=== PATIENT | male | born 1970 | race Caucasian/White ===

== ENCOUNTER 2018-09-11 08:16 | Day surgery (SDC) | payer OTHER ==
[2018-09-09 11:51] VITALS: BMI 47.3
[~2018-09-11 08:16] MED LIST: LACTATED RINGERS 1,000 ML IV SCH; LIDOCAINE 1% 20 ML VIAL (10MG/ML) FOR IV START INTRADERMA PRN
[2018-09-11 08:38] VITALS: RESP 16; TEMP 97.5
[2018-09-11] MEDS ORDERED: PROPOFOL 10 MG/ML 20 ML VIAL IV ONE (09:12)
[2018-09-11] MEDS ORDERED: LIDOCAINE 1% INJ 10MG/ML (20 ML MDV) ONE (09:12)
--- NOTE | 2018-09-11 09:18 | P.GSHP ---
History of Present Illness H&P Date: 09/11/18 Chief Complaint: Colon cancer screening Patient here today for colonoscopy. Last colonoscopy 7 years ago. Patient had polyps at that time. No bowel related complaints. Past Medical History Past Medical History: Hyperlipidemia Additional Past Medical History / Comment(s): hx. kidney stones, hx. colon polyps History of Any Multi-Drug Resistant Organisms: None Reported Past Surgical History: Appendectomy, Tonsillectomy Additional Past Surgical History / Comment(s): colonoscopy Past Anesthesia/Blood Transfusion Reactions: No Reported Reaction Smoking Status: Never smoker - Past Family History Mother Family Medical History: No Reported History Medications and Allergies Home Medications Medication Instructions Recorded Confirmed Type Allopurinol [Zyloprim] 300 mg PO DAILY 09/09/18 09/09/18 History Atorvastatin [Lipitor] 10 mg PO HS 09/09/18 09/09/18 History Cyanocobalamin (Vitamin B-12) 1,000 mcg PO DAILY 09/09/18 09/09/18 History [Vitamin B-12] Escitalopram [Lexapro] 10 mg PO DAILY 09/09/18 09/09/18 History Hydrochlorothiazide [Hydrodiuril] 25 mg PO DAILY 09/09/18 09/09/18 History Multivitamin [Multivitamins Adult 1 each PO DAILY 09/09/18 09/09/18 History Gummies] Naproxen Sodium [Aleve] 220 mg PO BID 09/09/18 09/09/18 History Allergies Allergy/AdvReac Type Severity Reaction Status Date / Time No Known Allergies Allergy Verified 09/11/18 08:28 Surgical - Exam Vital Signs Temp Pulse Resp BP Pulse Ox 97.5 F L 99 16 144/74 95 09/11/18 08:32 09/11/18 08:32 09/11/18 08:32 09/11/18 08:32 09/11/18 08:32 Physical exam: General: Well-developed, well-nourished HEENT: Normocephalic, sclerae nonicteric Abdomen: Nontender, nondistended Extremities: No edema Neuro: Alert and oriented Assessment and Plan (1) Colon cancer screening Narrative/Plan: Will proceed with colonoscopy Current Visit: Yes Status: Acute Code(s): Z12.11 - ENCOUNTER FOR SCREENING FOR MALIGNANT NEOPLASM OF COLON SNOMED Code(s): 087058207
--- NOTE | 2018-09-11 09:38 | P.PCN ---
Date of Procedure: 09/11/18 Procedure(s) Performed: PREOPERATIVE DIAGNOSIS: Colon cancer screening, history of polyps POSTOPERATIVE DIAGNOSIS: Sigmoid colon polyp, diverticulosis PROCEDURE: Colonoscopy with snare polypectomy ANESTHESIA: MAC SURGEON: Rony Faye M.D. SPECIMENS: Sigmoid colon polyp ENDOSCOPIC PROCEDURE: The patient was placed on the endoscopy table in the left decubitus position. The Olympus colonoscope was inserted into the anus and passed under direct visualization to the base of the cecum. The appendiceal orifice was visualized. From that point the scope was slowly withdrawn inspecting all surfaces carefully. There were no neoplastic inflammatory or polypoid lesions throughout the cecum, ascending, transverse, and descending colon. Sigmoid colon a small polyp was identified and removed using the snare with cautery technique. The remainder of the sigmoid and rectum appeared normal. There was mild left-sided diverticulosis noted. Digital rectal examination was normal. The patient was taken to the recovery room in stable condition per anesthesia guidelines. RECOMMENDATIONS: Increase fiber. Anticipate follow-up colonoscopy 5 years.
[2018-09-11 10:03] VITALS: BP 99/62; PULSE 83
== END 2018-09-11 10:14 | disposition home or self-care (01) ==
LOC: ORWHC2ENDO 08:16
PROVIDERS: ATTEND Surgery
DX: Z12.11 Encounter for screening for malignant neoplasm of colon (principal); K63.5 Polyp of colon; K63.3 Ulcer of intestine; K57.30 Diverticulosis of large intestine without perforation or abscess without bleeding; E78.5 Hyperlipidemia, unspecified; I10 Essential (primary) hypertension; E66.9 Obesity, unspecified; Z68.42 Body mass index [BMI] 45.0-49.9, adult; Z86.010 Personal history of colon polyps; Z87.442 Personal history of urinary calculi; Z79.899 Other long term (current) drug therapy; Z79.1 Long term (current) use of non-steroidal anti-inflammatories (NSAID)
CPT/HCPCS: 88305; 45385; J2001; J2704

== ENCOUNTER 2022-04-14 12:42 | Inpatient (IN) | payer OTHER ==
[2022-04-14 15:06] LABS: Basophils # (A) 0.1 k/uL (0-0.2); Basophils % (A) 1 %; Eosinophils # (A) 0.1 k/uL (0-0.7); Eosinophils % (A) 1 %; HCT 40.1 % (39.0-53.0); HGB 12.7 gm/dL (13.0-17.5); Hypochromasia Slight; Lymphocytes # (A) 2.9 k/uL (1.0-4.8); Lymphocytes % (A) 15 %; MCH 24.8 pg (25.0-35.0); MCHC 31.6 g/dL (31.0-37.0); MCV 78.5 fL (80.0-100.0); Monocytes # (A) 1.2 k/uL (0-1.0); Monocytes % (A) 6 %; Neutrophils # (A) 14.1 k/uL (1.3-7.7); Neutrophils % (A) 76 %; Platelet Count 479 k/uL (150-450); RBC 5.11 m/uL (4.30-5.90); RDW 14.3 % (11.5-15.5); WBC 18.7 k/uL (3.8-10.6)
[2022-04-14 15:14] LABS: ALT 12 U/L (4-49); AST 17 U/L (17-59); African American GFR (CKD) >90 (>60 ml/min/1.73 sqM); Albumin 3.3 g/dL (3.5-5.0); Alkaline Phosphatase 125 U/L (38-126); Anion Gap 14 mmol/L; Blood Urea Nitrogen 13 mg/dL (9-20); Calcium 8.8 mg/dL (8.4-10.2); Carbon Dioxide 27 mmol/L (22-30); Chloride 94 mmol/L (98-107); Glucose 123 mg/dL (74-99); Non-African American GFR(CKD) >90 (>60 ml/min/1.73 sqM); Potassium 3.9 mmol/L (3.5-5.1); Sodium 135 mmol/L (137-145); Total Bilirubin 0.4 mg/dL (0.2-1.3); Total Protein 6.8 g/dL (6.3-8.2)
--- NOTE | 2022-04-14 15:37 | XR ---
EXAMINATION TYPE: XR chest 2V DATE OF EXAM: 04/14/2022 COMPARISON: NONE HISTORY: Rib pain TECHNIQUE: 2 views FINDINGS: There is some mild atelectasis right lung base. There is elevated right diaphragm. Heart si ze is normal. Bony thorax is intact. IMPRESSION: There is some mild right basilar atelectasis. Normal heart.
[2022-04-14] MEDS ORDERED: SODIUM CHLORIDE 0.9% 2,000 ML IV ONE (17:39)
--- NOTE | 2022-04-14 17:54 | ED ---
General Adult HPI - General Chief complaint: Recheck/Abnormal Lab/Rx Stated complaint: abn labs, rt sided pain Time Seen by Provider: 04/14/22 17:25 Source: patient Mode of arrival: wheelchair Limitations: no limitations - History of Present Illness Initial comments: 52-year-old male with past nuchal history of hyperlipidemia, prediabetic on metformin who presents to the emergency department for abnormal labs. States that he has been treated for pneumonia since January of this year. He developed a cough, shortness of breath. Laboratory studies were obtained by his primary care and was found that he had an elevated white blood cell count in the 14. He also had a low hemoglobin of 11 which was a fall from his baseline per his PCP. He was placed on an antibiotic by the mid-level provider. This was switched by the physician. He was on azithromycin and Augmentin. States that 4 days into the duration of his treatment he felt much improved. He followed back up with his doctor for repeat x-ray which demonstrated improvement in his pneumonia. He continued to have some shortness of breath especially with exertion. Denies chest pain. No previous cardiac history. Denies calf pain or swelling. No history of DVT or PE. For the past week the patient had recurrent symptoms. He called his physician who wanted to do a CT of his chest. States that he has a prescription for this however has not yet had it completed. Reports that he feels more short of breath with chest congestion and therefore came up to the hospital for evaluation. He denies productive cough or hemoptysis. No abdominal pain. No changes in his bowel or bladder habits. Does admit to poor appetite and 50 pound weight loss since the end of January. Patient is a non smoker. No other alleviating, precipitating or modifying factors After speaking with the patient further after his diagnosis he does admit that just previous to becoming ill that he was getting significant dental work performed. States that they were removing all of his old fillings and replacing them with new ones. He then got ill and was unable to continue with his dental work. He denies drug use - Related Data Home Medications Medication Instructions Recorded Confirmed Atorvastatin [Lipitor] 10 mg PO DAILY 09/09/18 04/14/22 Escitalopram [Lexapro] 10 mg PO DAILY 09/09/18 04/14/22 hydroCHLOROthiazide [Hydrodiuril] 25 mg PO DAILY 09/09/18 04/14/22 Multivit-Min/Folic/Vit K/Lycop 1 tab PO DAILY 04/14/22 04/14/22 [Men's Multivitamin Tablet] metFORMIN HCL [Glucophage] 500 mg PO BID-W/MEALS 04/14/22 04/14/22 Allergies Allergy/AdvReac Type Severity Reaction Status Date / Time No Known Allergies Allergy Verified 04/14/22 19:09 Review of Systems ROS Statement: Those systems with pertinent positive or pertinent negative responses have been documented in the HPI. ROS Other: All systems not noted in ROS Statement are negative. Past Medical History Past Medical History: Hyperlipidemia, Pneumonia Additional Past Medical History / Comment(s): hx. kidney stones, hx. colon polyps History of Any Multi-Drug Resistant Organisms: None Reported Past Surgical History: Appendectomy, Tonsillectomy Additional Past Surgical History / Comment(s): colonoscopy Past Anesthesia/Blood Transfusion Reactions: No Reported Reaction Past Psychological History: No Psychological Hx Reported Smoking Status: Never smoker Past Alcohol Use History: None Reported Past Drug Use History: None Reported - Past Family History Mother Family Medical History: No Reported History General Exam Limitations: no limitations General appearance: alert, in no apparent distress, obese Head exam: Present: atraumatic, normocephalic, normal inspection Eye exam: Present: normal appearance, PERRL, EOMI. Absent: scleral icterus, conjunctival injection, periorbital swelling ENT exam: Present: normal exam, mucous membranes moist Neck exam: Present: normal inspection. Absent: tenderness, meningismus, lymphadenopathy Respiratory exam: Present: normal lung sounds bilaterally. Absent: respiratory distress, wheezes, rales, rhonchi, stridor Cardiovascular Exam: Present: normal rhythm, tachycardia, normal heart sounds. Absent: systolic murmur, diastolic murmur, rubs, gallop, clicks GI/Abdominal exam: Present: soft, normal bowel sounds. Absent: distended, tenderness, guarding, rebound, rigid Extremities exam: Present: normal inspection, full ROM, normal capillary refill. Absent: tenderness, pedal edema, joint swelling, calf tenderness Back exam: Present: normal inspection Neurological exam: Present: alert, oriented X3, CN II-XII intact Psychiatric exam: Present: normal affect, normal mood Skin exam: Present: warm, dry, intact, normal color. Absent: rash Course Vital Signs 0904/14/22 04/14/22 13:02 19:30 21:24 Temperature 98.5 F 99.0 F Pulse Rate 116 H 103 H 99 Respiratory 20 20 15 Rate Blood Pressure 128/62 128/77 117/75 O2 Sat by Pulse 95 96 96 Oximetry EKG Findings - EKG Comments: EKG Findings:: EKG demonstrates a sinus tachycardia with a rate of 100. TN interval 152. QRS 92. QTC of 388. No acute ST segment elevation. There is a T-wave inversion in lead 3 Medical Decision Making - Medical Decision Making Upon arrival patient is placed into room 10. A thorough history and physical exam was performed. Labs were completed in the waiting room as the patient was here for a significant period of time before being placed in a room. Laboratory studies are reviewed and do demonstrate a white count of 18.7. IV is established the patient is given a 2 L bolus and started on 130 mL/h. Blood cultures obtained. Patient does have a chest x-ray performed which demonstrates right basilar atelectasis. I do perform a CT of the chest as the patient reports to exertional dyspnea which is pretty profound. CT is negative for PE however it does sisal picker a liver abscess. As this is identified on the CT of the chest the imaging is continued into the abdomen. Patient is initiated on Zosyn. Recommended admission for which the patient was agreeable to. Spoke with Dr. Cedeño who agreed to the admission. - Lab Data Result diagrams: 04/17/22 07:04 04/17/22 07:04 Lab Results 04/14/22 04/14/22 04/14/22 Range/Units 14:58 14:58 14:58 WBC 18.7 H (3.8-10.6) k/uL RBC 5.11 (4.30-5.90) m/uL Hgb 12.7 L (13.0-17.5) gm/dL Hct 40.1 (39.0-53.0) % MCV 78.5 L (80.0-100.0) fL MCH 24.8 L (25.0-35.0) pg MCHC 31.6 (31.0-37.0) g/dL RDW 14.3 (11.5-15.5) % Plt Count 479 H (150-450) k/uL MPV 7.0 Neutrophils % 76 % Lymphocytes % 15 % Monocytes % 6 % Eosinophils % 1 % Basophils % 1 % Neutrophils # 14.1 H (1.3-7.7) k/uL Lymphocytes # 2.9 (1.0-4.8) k/uL Monocytes # 1.2 H (0-1.0) k/uL Eosinophils # 0.1 (0-0.7) k/uL Basophils # 0.1 (0-0.2) k/uL Hypochromasia Slight Sodium 135 L (137-145) mmol/L Potassium 3.9 (3.5-5.1) mmol/L Chloride 94 L (98-107) mmol/L Carbon Dioxide 27 (22-30) mmol/L Anion Gap 14 mmol/L BUN 13 (9-20) mg/dL Creatinine 0.43 L (0.66-1.25) mg/dL Est GFR (CKD-EPI)AfAm >90 (>60 ml/min/1.73 sqM) Est GFR (CKD-EPI)NonAf >90 (>60 ml/min/1.73 sqM) Glucose 123 H (74-99) mg/dL Calcium 8.8 (8.4-10.2) mg/dL Total Bilirubin 0.4 (0.2-1.3) mg/dL AST 17 (17-59) U/L ALT 12 (4-49) U/L Alkaline Phosphatase 125 (38-126) U/L Troponin I <0.012 (0.000-0.034) ng/mL Total Protein 6.8 (6.3-8.2) g/dL Albumin 3.3 L (3.5-5.0) g/dL Urine Color Urine Appearance (Clear) Urine pH (5.0-8.0) Ur Specific [place] (1.001-1.035) Urine Protein (Negative) Urine Glucose (UA) (Negative) Urine Ketones (Negative) Urine Blood (Negative) Urine Nitrite (Negative) Urine Bilirubin (Negative) Urine Urobilinogen (<2.0) mg/dL Ur Leukocyte Esterase (Negative) Urine RBC (0-5) /hpf Urine WBC (0-5) /hpf Hyaline Casts (0-2) /lpf Urine Mucus (None) /hpf 04/14/22 Range/Units 18:00 WBC (3.8-10.6) k/uL RBC (4.30-5.90) m/uL Hgb (13.0-17.5) gm/dL Hct (39.0-53.0) % MCV (80.0-100.0) fL MCH (25.0-35.0) pg MCHC (31.0-37.0) g/dL RDW (11.5-15.5) % Plt Count (150-450) k/uL MPV Neutrophils % % Lymphocytes % % Monocytes % % Eosinophils % % Basophils % % Neutrophils # (1.3-7.7) k/uL Lymphocytes # (1.0-4.8) k/uL Monocytes # (0-1.0) k/uL Eosinophils # (0-0.7) k/uL Basophils # (0-0.2) k/uL Hypochromasia Sodium (137-145) mmol/L Potassium (3.5-5.1) mmol/L Chloride (98-107) mmol/L Carbon Dioxide (22-30) mmol/L Anion Gap mmol/L BUN (9-20) mg/dL Creatinine (0.66-1.25) mg/dL Est GFR (CKD-EPI)AfAm (>60 ml/min/1.73 sqM) Est GFR (CKD-EPI)NonAf (>60 ml/min/1.73 sqM) Glucose (74-99) mg/dL Calcium (8.4-10.2) mg/dL Total Bilirubin (0.2-1.3) mg/dL AST (17-59) U/L ALT (4-49) U/L Alkaline Phosphatase (38-126) U/L Troponin I (0.000-0.034) ng/mL Total Protein (6.3-8.2) g/dL Albumin (3.5-5.0) g/dL Urine Color Yellow Urine Appearance Clear (Clear) Urine pH 6.5 (5.0-8.0) Ur Specific [place] 1.025 (1.001-1.035) Urine Protein 1+ H (Negative) Urine Glucose (UA) Negative (Negative) Urine Ketones Negative (Negative) Urine Blood Negative (Negative) Urine Nitrite Negative (Negative) Urine Bilirubin Negative (Negative) Urine Urobilinogen 4.0 (<2.0) mg/dL Ur Leukocyte Esterase Negative (Negative) Urine RBC <1 (0-5) /hpf Urine WBC 1 (0-5) /hpf Hyaline Casts 8 H (0-2) /lpf Urine Mucus Many H (None) /hpf Disposition Clinical Impression: Leukocytosis, Tachycardia, Sepsis, Liver abscess Disposition: ADMITTED IP TO THIS HOSP Condition: Stable Is patient prescribed a controlled substance at d/c from ED?: No Time of Disposition: 18:38 Decision to Admit Reason: Admit from EC Decision Date: 04/14/22 Decision Time: 18:38
[2022-04-14 18:28] LABS: Appearance,Urine Clear (Clear); Bilirubin,Urine Negative (Negative); Blood,Urine Negative (Negative); Color,Urine Yellow; Glucose,Urine (UA) Negative (Negative); Hyaline Casts,Urine 8 /lpf (0-2); Ketones,Urine Negative (Negative); Leukocyte Esterase,Urine Negative (Negative); Mucus,Urine Many /hpf; Nitrite,Urine Negative (Negative); PH, Urine 6.5 (5.0-8.0); Protein,Urine 1+ (Negative); RBC,Urine <1 /hpf (0-5); Specific Gravity,Urine 1.025 (1.001-1.035); WBC,Urine 1 /hpf (0-5)
--- NOTE | 2022-04-14 19:12 | CT ---
EXAMINATION TYPE: CT chest angio for PE DATE OF EXAM: 04/14/2022 COMPARISON: None HISTORY: sob, tachycardia, elevated wbc CT DLP: 3960.1 mGycm Automated exposure control for dose reduction was used. CONTRAST: Performed with IV Contrast, patient injected with 200cc mL of Isovue 370. Images obtained from the thoracic inlet to the diaphragm with the IV contrast. There are Three-D post processed images. There is some bullous pulmonary emphysema. There is a single large bulla in the sup erior segment right lower lobe. This measures 7 cm. There is some nodular density within the bulla in the right paraspinal region. There is some mild infiltrate and atelectasis right lung base. There is elevated right diaphragm. The heart size is normal. No pericardial effusion. There is no mediastinal adenopathy. Thoracic aorta is intact. There is no evidence of filling defect in the pulmonary arteries. IMPRESSION: There is infiltrate and atelectasis right lower lobe. There is some mild pleural thickening and nodul ar 2 cm density within the large bulla in the region of superior segment right lower lobe. Normal heart. No evidence of pulmonary embolism. Pulmonary emphysema.
--- NOTE | 2022-04-14 19:21 | CT ---
EXAMINATION TYPE: CT abdomen pelvis w con DATE OF EXAM: 04/14/2022 COMPARISON: None HISTORY: sob, tachycardia, elevated wbc CT DLP: 3960.1 mGycm Automated exposure control for dose reduction was used. CONTRAST: Performed with IV Contrast, patient injected with 200cc mL of Isovue 370. Images obtained from the diaphragm to the floor the pelvis with IV contrast. FINDINGS: There is some mild atelectasis at the right lung base. There is infiltrate and pleural thickening in emphysematous change in the superior segment right lower lobe. Heart size is normal. There is multiseptated cystic appearing mass in the posterior right lobe of the liver. There is no en hancement. The lesion overall measures 9 cm. There is posterior extension of the mass into the right perirenal space. The spleen is intact. No pancreatic mass. The stomach is intact. Gallbladder appears normal. There is no adrenal mass. Kidneys show satisfactory contrast opacification. There is no hydronephrosi s. Ureters are not dilated. No retroperitoneal adenopathy. Bladder distends smoothly. There is fat-co ntaining bilateral inguinal hernias. No free fluid in the pelvis. No pelvic mass. There are sigmoid d iverticula without diverticulitis. There are surgical clips from appendectomy. No mesenteric edema. No ascites or free air. No sign of a bowel obstruction. The lumbar vertebrae have normal alignment. No compression fracture. Posterior elements are intact. B natan pelvis is intact. The hip joints are intact. IMPRESSION: Multiseptated cystic low density mass in the right lobe of the liver with extension into the perirena l space. There is pleural reaction and infiltrate right lung base. This could relate to liver abscess . Liver tumor not excluded. Follow-up is recommended.
[2022-04-14] MEDS ORDERED: NALOXONE 0.4 MG/ML 1 ML VIAL IV PRN (19:24)
[2022-04-14] MEDS: PIPERACILLIN-TAZOBACTAM 3.375 GM in SODIUM CHLORIDE 0.9% 100 ML IVPB SCH (19:45)
[2022-04-14] MEDS: SODIUM CHLORIDE 0.9% 1,000 ML IV SCH (19:45)
[2022-04-14] MEDS: IBUPROFEN 400 MG TAB PO PRN (22:31)
[2022-04-15] MEDS: PIPERACILLIN-TAZOBACTAM 3.375 GM in SODIUM CHLORIDE 0.9% 100 ML IVPB SCH ×4 (00:18→23:41)
[2022-04-15] MEDS: ATORVASTATIN 10 MG TAB PO SCH (07:38)
[2022-04-15] MEDS: MULTIVITAMINS, THERA 1 EACH TAB PO SCH (07:39)
[2022-04-15] MEDS ORDERED: hydroCHLOROthiazide 25 MG TAB PO SCH (09:00)
[2022-04-15 09:16] LABS: Basophils # (A) 0.05 X 10*3/uL (0.00-0.10); Basophils % (A) 0.4 %; Eosinophils # (A) 0.18 X 10*3/uL (0.04-0.35); Eosinophils % (A) 1.4 %; HCT 34.4 % (39.6-50.0); HGB 10.6 g/dL (13.0-17.0); Immature Grans, Automated 0.9 %; Lymphocytes # (A) 2.04 X 10*3/uL (0.90-5.00); Lymphocytes % (A) 15.5 %; MCH 24.6 pg (27.0-32.0); MCHC 30.8 g/dL (32.0-37.0); MCV 79.8 fL (80.0-97.0); Mean Platelet Volume 9.2 fL (9.5-12.2); Monocytes # (A) 1.26 X 10*3/uL (0.20-1.00); Monocytes % (A) 9.6 %; NRBC Per 100 WBC 0 /100 WBCS (0.0-0.0); Neutrophils # (A) 9.48 X 10*3/uL (1.80-7.70); Neutrophils % (A) 72.2 %; Platelet Count 342 X 10*3/uL (140-440); RBC 4.31 X 10*6/uL (4.40-5.60); RDW 14.7 % (11.5-14.5); WBC 13.13 X 10*3/uL (4.50-10.00)
[2022-04-15 09:58] LABS: African American GFR (CKD) 145.4 (60.0-200.0); BUN/Creat Ratio 24.4 Ratio (12.00-20.00); Blood Urea Nitrogen 12.2 mg/dL (9.0-27.0); Calcium 8.4 mg/dL (8.7-10.3); Non-African American GFR(CKD) 125.5 (60.0-200.0); Potassium 3.9 mmol/L (3.5-5.5)
[2022-04-15] MEDS: ESCITALOPRAM 10 MG TAB PO SCH (10:37)
[2022-04-15] MEDS: IBUPROFEN 400 MG TAB PO PRN ×2 (13:03→21:12)
[2022-04-15] MEDS: SODIUM CHLORIDE 0.9% 1,000 ML IV SCH ×3 (13:04→23:40)
--- NOTE | 2022-04-15 14:06 | P.HPIM ---
History of Present Illness 52-year-old pleasant male came in with complaints of a right-sided chest pain. Patient has severe pleuritic pain in the lower rib cage area on the right side. Patient had similar symptoms for last few days she couple weeks and the patient was believed to have pneumonia and was a treated with azithromycin and Augmentin. After transient improvement patient's symptoms came back and his white blood cell count continued to get worse after initial improvement because of which patient came to ER had a CT of the chest which showed some pleural reaction no significant pneumonia CT of the abdomen was done which showed hepatic abscess about 9 cm. Interventional radiology was consulted patient was started on Zosyn IV fluids. Patient had a dental work that was performed recently, which is a removing all his old fillings and replacing them with ones. Patient does have leukocytosis without any fever REVIEW OF SYSTEMS: CONSTITUTIONAL: No fever, no malaise, no fatigue. HEENT: No recent visual problems or hearing problems. Denied any sore throat. CARDIOVASCULAR: No orthopnea, PND, no palpitations, no syncope. PULMONARY: No shortness of breath, no cough, no hemoptysis. GASTROINTESTINAL: No diarrhea, no nausea, no vomiting, no abdominal pain. NEUROLOGICAL: No headaches, no weakness, no numbness. HEMATOLOGICAL: Denies any bleeding or petechiae. GENITOURINARY: Denies any burning micturition, frequency, or urgency. MUSCULOSKELETAL/RHEUMATOLOGICAL: Denies any joint pain, swelling, or any muscle pain. ENDOCRINE: Denies any polyuria or polydipsia. The rest of the 14-point review of systems is negative. PHYSICAL EXAMINATION: GENERAL: The patient is alert and oriented x3, not in any acute distress. Well d eveloped, well nourished. HEENT: Pupils are round and equally reacting to light. EOMI. No scleral icterus. No conjunctival pallor. Normocephalic, atraumatic. No pharyngeal erythema. No thyromegaly. CARDIOVASCULAR: S1 and S2 present. No murmurs, rubs, or gallops. PULMONARY: Chest is clear to auscultation, no wheezing or crackles. ABDOMEN: Soft, nontender, nondistended, normoactive bowel sounds. No palpable organomegaly. MUSCULOSKELETAL: No joint swelling or deformity. EXTREMITIES: No cyanosis, clubbing, or pedal edema. NEUROLOGICAL: Gross neurological examination did not reveal any focal deficits. SKIN: No rashes. Assessment and plan -Hepatic abscess: Induration radiology was consulted for image guided draining, patient will continued on Zosyn, infectious disease was consulted -Hypertension patient blood pressure is low normal hold off on hydrocodone thiazide -Hyperlipidemia -3 diabetes mellitus for which patient on metformin DVT prophylaxis: Lovenox Past Medical History Past Medical History: Hyperlipidemia, Pneumonia Additional Past Medical History / Comment(s): hx. kidney stones, hx. colon polyps History of Any Multi-Drug Resistant Organisms: None Reported Past Surgical History: Appendectomy, Tonsillectomy Additional Past Surgical History / Comment(s): colonoscopy Past Anesthesia/Blood Transfusion Reactions: No Reported Reaction Past Psychological History: No Psychological Hx Reported Smoking Status: Never smoker Past Alcohol Use History: None Reported Past Drug Use History: None Reported - Past Family History Mother Family Medical History: No Reported History Medications and Allergies Home Medications Medication Instructions Recorded Confirmed Type Atorvastatin [Lipitor] 10 mg PO DAILY 09/09/18 04/14/22 History Escitalopram [Lexapro] 10 mg PO DAILY 09/09/18 04/14/22 History hydroCHLOROthiazide [Hydrodiuril] 25 mg PO DAILY 09/09/18 04/14/22 History Multivit-Min/Folic/Vit K/Lycop 1 tab PO DAILY 04/14/22 04/14/22 History [Men's Multivitamin Tablet] metFORMIN HCL [Glucophage] 500 mg PO BID-W/MEALS 04/14/22 04/14/22 History Allergies Allergy/AdvReac Type Severity Reaction Status Date / Time No Known Allergies Allergy Verified 04/14/22 19:09 Physical Exam Vitals: Vital Signs Temp Pulse Pulse Resp BP BP Pulse Ox 04/15/22 08:00 99.1 F 103 H 18 112/54 94 L 04/15/22 01:50 98.5 F 86 15 132/78 94 L 04/14/22 21:24 99 15 117/75 96 04/14/22 19:30 99.0 F 103 H 20 128/77 96 Intake and Output 04/14/22 04/15/22 04/15/22 22:59 06:59 14:59 Intake Total 1010 Balance 1010 Intake: Intake, IV Titration 1010 Amount Piperacillin-Tazobactam 3 100 .375 gm In Sodium Chloride 0.9% 100 ml @ 25 mls/hr IVPB Q8HR [facility] Rx# :[id number] Sodium Chloride 0.9% 1, 910 000 ml @ 130 mls/hr IV . Q7H42M [facility] Rx#:[id number] Other: # Voids 2 Weight 122.47 kg Results CBC & Chem 7: 04/15/22 04:07 04/15/22 04:07 Labs: Abnormal Lab Results - Last 24 Hours (Table) 04/14/22 04/14/22 04/14/22 Range/Units 14:58 14:58 18:00 WBC 18.7 H (3.8-10.6) k/uL RBC (4.40-5.60) X 10*6/uL Hgb 12.7 L (13.0-17.5) gm/dL Hct (39.6-50.0) % MCV 78.5 L (80.0-100.0) fL MCH 24.8 L (25.0-35.0) pg MCHC (32.0-37.0) g/dL RDW (11.5-14.5) % Plt Count 479 H (150-450) k/uL MPV (9.5-12.2) fL Immature Gran # (0.00-0.04) X 10*3/uL Neutrophils # 14.1 H (1.3-7.7) k/uL Monocytes # 1.2 H (0-1.0) k/uL Sodium 135 L (137-145) mmol/L Chloride 94 L (98-107) mmol/L Carbon Dioxide (20.0-27.5) mmol/L Anion Gap (10.00-18.00) mmol/L Creatinine 0.43 L (0.66-1.25) mg/dL BUN/Creatinine Ratio (12.00-20.00) Ratio Glucose 123 H (74-99) mg/dL Calcium (8.7-10.3) mg/dL Albumin 3.3 L (3.5-5.0) g/dL Urine Protein 1+ H (Negative) Hyaline Casts 8 H (0-2) /lpf Urine Mucus Many H (None) /hpf 04/15/22 04/15/22 Range/Units 04:07 04:07 WBC 13.13 H (3.8-10.6) k/uL RBC 4.31 L (4.40-5.60) X 10*6/uL Hgb 10.6 L (13.0-17.5) gm/dL Hct 34.4 L (39.6-50.0) % MCV 79.8 L (80.0-100.0) fL MCH 24.6 L (25.0-35.0) pg MCHC 30.8 L (32.0-37.0) g/dL RDW 14.7 H (11.5-14.5) % Plt Count (150-450) k/uL MPV 9.2 L (9.5-12.2) fL Immature Gran # 0.12 H (0.00-0.04) X 10*3/uL Neutrophils # 9.48 H (1.3-7.7) k/uL Monocytes # 1.26 H (0-1.0) k/uL Sodium (137-145) mmol/L Chloride (98-107) mmol/L Carbon Dioxide 31.0 H (20.0-27.5) mmol/L Anion Gap 6.00 L (10.00-18.00) mmol/L Creatinine 0.5 L (0.66-1.25) mg/dL BUN/Creatinine Ratio 24.40 H (12.00-20.00) Ratio Glucose 128 H (74-99) mg/dL Calcium 8.4 L (8.7-10.3) mg/dL Albumin (3.5-5.0) g/dL Urine Protein (Negative) Hyaline Casts (0-2) /lpf Urine Mucus (None) /hpf Thrombosis Risk Factor Assmnt - Choose All That Apply Each Factor Represents 1 point: Obesity (BMI >25) Thrombosis Risk Factor Assessment Total Risk Factor Score: 1 Thrombosis Risk Factor Assessment Level: Low Risk
[2022-04-15] MEDS ORDERED: HYDROcodone/APAP 5-325MG 1 EACH TAB PO PRN (16:28)
[2022-04-15] MEDS: FAMOTIDINE 20 MG TAB PO SCH (21:10)
[2022-04-16] MEDS: ATORVASTATIN 10 MG TAB PO SCH (08:06)
[2022-04-16] MEDS: FAMOTIDINE 20 MG TAB PO SCH ×2 (08:06→21:28)
[2022-04-16] MEDS: MULTIVITAMINS, THERA 1 EACH TAB PO SCH (08:06)
[2022-04-16] MEDS: PIPERACILLIN-TAZOBACTAM 3.375 GM in SODIUM CHLORIDE 0.9% 100 ML IVPB SCH (08:06)
[2022-04-16] MEDS: ESCITALOPRAM 10 MG TAB PO SCH (08:07)
[2022-04-16 10:50] LABS: HCT 36.6 % (39.6-50.0); HGB 11.1 g/dL (13.0-17.0); MCH 23.9 pg (27.0-32.0); MCHC 30.3 g/dL (32.0-37.0); MCV 78.7 fL (80.0-97.0); Mean Platelet Volume 9.2 fL (9.5-12.2); NRBC Per 100 WBC 0 /100 WBCS (0.0-0.0); Platelet Count 359 X 10*3/uL (140-440); RBC 4.65 X 10*6/uL (4.40-5.60); RDW 14.6 % (11.5-14.5); WBC 13.66 X 10*3/uL (4.50-10.00)
[2022-04-16 11:17] LABS: African American GFR (CKD) 145.4 (60.0-200.0); Anion Gap 12.8 mmol/L (10.00-18.00); BUN/Creat Ratio 19.8 Ratio (12.00-20.00); Blood Urea Nitrogen 9.9 mg/dL (9.0-27.0); Calcium 8.4 mg/dL (8.7-10.3); Carbon Dioxide 24.2 mmol/L (20.0-27.5); Non-African American GFR(CKD) 125.5 (60.0-200.0)
[2022-04-16] MEDS: ENOXAPARIN 40 MG/0.4 ML SYRINGE SQ SCH (11:45)
[2022-04-16] MEDS: SODIUM CHLORIDE 0.9% 1,000 ML IV SCH (11:48)
[2022-04-16] MEDS ORDERED: HYDROmorphone 1 MG/ML 1 ML SYRINGE IVP STA (11:57)
[2022-04-16 19:42] LABS: INR 1.1 (<1.2); Prothrombin Time 11.9 sec (9.0-12.0)
[2022-04-17] MEDS: PIPERACILLIN-TAZOBACTAM 3.375 GM in SODIUM CHLORIDE 0.9% 100 ML IVPB SCH ×4 (00:03→16:35)
[2022-04-17] MEDS: IBUPROFEN 400 MG TAB PO PRN ×2 (02:52→21:30)
[2022-04-17] MEDS: SODIUM CHLORIDE 0.9% 1,000 ML IV SCH ×2 (04:20→14:45)
[2022-04-17] MEDS: ATORVASTATIN 10 MG TAB PO SCH (09:42)
[2022-04-17] MEDS: MULTIVITAMINS, THERA 1 EACH TAB PO SCH (09:42)
[2022-04-17] MEDS: ENOXAPARIN 40 MG/0.4 ML SYRINGE SQ SCH (09:42)
[2022-04-17] MEDS: FAMOTIDINE 20 MG TAB PO SCH ×2 (09:42→21:26)
[2022-04-17] MEDS: ESCITALOPRAM 10 MG TAB PO SCH (09:42)
[2022-04-17 10:31] LABS: HCT 38.1 % (39.6-50.0); HGB 11.9 g/dL (13.0-17.0); MCH 24.6 pg (27.0-32.0); MCHC 31.2 g/dL (32.0-37.0); MCV 78.7 fL (80.0-97.0); Mean Platelet Volume 9.1 fL (9.5-12.2); NRBC Per 100 WBC 0 /100 WBCS (0.0-0.0); Platelet Count 436 X 10*3/uL (140-440); RBC 4.84 X 10*6/uL (4.40-5.60); RDW 14.9 % (11.5-14.5); WBC 34.12 X 10*3/uL (4.50-10.00)
[2022-04-17 10:52] LABS: African American GFR (CKD) 145.4 (60.0-200.0); Anion Gap 13.4 mmol/L (10.00-18.00); Calcium 8.5 mg/dL (8.7-10.3); Carbon Dioxide 22.6 mmol/L (20.0-27.5); Non-African American GFR(CKD) 125.5 (60.0-200.0); Potassium 4.1 mmol/L (3.5-5.5)
[2022-04-17 11:47] LABS: Basophils # (A) 0.08 X 10*3/uL (0.00-0.10); Basophils % (A) 0.2 %; Eosinophils # (A) 0.03 X 10*3/uL (0.04-0.35); Eosinophils % (A) 0.1 %; Immature Grans, Automated 1.2 %; Lymphocytes # (A) 2.31 X 10*3/uL (0.90-5.00); Lymphocytes % (A) 6.8 %; Monocytes # (A) 2.35 X 10*3/uL (0.20-1.00); Monocytes % (A) 6.9 %; Neutrophils # (A) 28.94 X 10*3/uL (1.80-7.70); Neutrophils % (A) 84.8 %
--- NOTE | 2022-04-17 15:26 | P.CONS ---
History of Present Illness - Reason for Consult Consult date: 04/16/22 - History of Present Illness Patient is a 52-year male with a past medical history of liver hyperlipidemia diabetes mellitus and has been recently treated for pneumonia in the outpatient setting, presenting to the hospital 2 days ago for evaluation of abnormal labs, the patient was noticed to have elevated white count of 14,000 hemoglobin of 11, patient has been complaining mostly of feeling weak tired no energy is also complaining of shortness of breath on minimal exertion denies any chest pain the patient cough seem to have improved and not bring up any sputum patient denies any abdominal pain no nausea vomiting no diarrhea, patient on presentation to the hospital was afebrile and no fever have been recorded subsequently patient did have white count of 13,000 with a left shift kidney function has been normal urine has been negative patient did have a chest x-ray mild right basilar atelectasis he did have a CT angiogram of the chest that was negative for PE tissues infiltrate atelectasis right lower lobe mild pleural thickening also have a CT of abdominal pelvis which shows multiseptated cystic l ow-density mass in the right lobe of the liver with extension into the perinephric space patient was started on Zosyn infectious disease was consulted for further management of antibiotic therapy, The patient denies having any recent travel outside of the [place] do not have any exposure to exotic animals or anybody sick at home or at work Past Medical History Past Medical History: Hyperlipidemia, Pneumonia Additional Past Medical History / Comment(s): hx. kidney stones, hx. colon polyps History of Any Multi-Drug Resistant Organisms: None Reported Past Surgical History: Appendectomy, Tonsillectomy Additional Past Surgical History / Comment(s): colonoscopy Past Anesthesia/Blood Transfusion Reactions: No Reported Reaction Past Psychological History: No Psychological Hx Reported Smoking Status: Never smoker Past Alcohol Use History: None Reported Past Drug Use History: None Reported - Past Family History Mother Family Medical History: No Reported History Medications and Allergies Home Medications Medication Instructions Recorded Confirmed Type Atorvastatin [Lipitor] 10 mg PO DAILY 09/09/18 04/14/22 History Escitalopram [Lexapro] 10 mg PO DAILY 09/09/18 04/14/22 History hydroCHLOROthiazide [Hydrodiuril] 25 mg PO DAILY 09/09/18 04/14/22 History Multivit-Min/Folic/Vit K/Lycop 1 tab PO DAILY 04/14/22 04/14/22 History [Men's Multivitamin Tablet] metFORMIN HCL [Glucophage] 500 mg PO BID-W/MEALS 04/14/22 04/14/22 History Allergies Allergy/AdvReac Type Severity Reaction Status Date / Time No Known Allergies Allergy Verified 04/14/22 19:09 Physical Exam Vitals: Vital Signs Temp Pulse Resp BP Pulse Ox 04/16/22 07:19 97.8 F 105 H 17 131/88 95 04/16/22 02:00 97.9 F 99 20 113/68 93 L 04/15/22 21:12 97 16 04/15/22 17:41 99.2 F 97 16 126/76 94 L 04/15/22 14:00 98.7 F 98 17 143/68 94 L Intake and Output 04/15/22 04/16/22 04/16/22 22:59 06:59 14:59 Other: # Voids 2 2 1 Results CBC & Chem 7: 04/17/22 07:04 04/17/22 07:04 Labs: Abnormal Lab Results - Last 24 Hours (Table) 04/16/22 04/16/22 Range/Units 08:04 08:04 WBC 13.66 H (4.50-10.00) X 10*3/uL Hgb 11.1 L (13.0-17.0) g/dL Hct 36.6 L (39.6-50.0) % MCV 78.7 L (80.0-97.0) fL MCH 23.9 L (27.0-32.0) pg MCHC 30.3 L (32.0-37.0) g/dL RDW 14.6 H (11.5-14.5) % MPV 9.2 L (9.5-12.2) fL Creatinine 0.5 L (0.6-1.5) mg/dL Glucose 195 H (70-110) mg/dL Calcium 8.4 L (8.7-10.3) mg/dL Microbiology - Last 24 Hours (Table) 04/14/22 18:00 Blood Culture - Preliminary Blood No Growth after 24 hours Assessment and Plan Plan: 1patient presented to hospital with abnormal labs in this patient did have elevated white count and has been recently treated for pneumonia patient now with abnormal CT suggestive of possible liver abscess did not mention an evidence of empyema on the CT angiogram of the chest. 2await IR drainage of this abscess and the fluid should be sent for culture both aerobic and anaerobic 3patient to continue Zosyn while waiting for the culture to finalize We will follow on clinical condition and cultures to further adjust medication if needed Thank you for this consultation will follow this patient along with you
--- NOTE | 2022-04-17 15:29 | P.PN ---
Subjective Progress Note Date: 04/17/22 Principal diagnosis: Liver abscess Patient is a 52-year-old male presented to hospital with abnormal lab in this patient with elevated white count and did have evidence of liver abscess on the CT the patient is status post IR drainage of this abscess completed on 04/16/2022. On today's evaluation that is 04/17/2022, the patient did spike a fever of 101 F last night patient is afebrile this morning complaining of some pain to the drainage catheter insertion site no chest pain or shortness of breath occasional cough no abdominal pain no diarrhea Objective - Vital Signs Vital signs: Vital Signs Temp 97.7 F 04/17/22 07:22 Pulse 107 H 04/17/22 07:22 Resp 18 04/17/22 07:22 BP 135/81 04/17/22 07:22 Pulse Ox 96 04/17/22 07:22 FiO2 Intake & Output 04/16/22 04/17/22 04/17/22 18:59 06:59 18:59 Output Total 15 Balance -15 Output: Drainage 15 Right Back 15 Other: Voiding Method Toilet # Voids 1 3 - Exam GENERAL DESCRIPTION: Middle-aged male lying in bed, no distress. No tachypnea or accessory muscle of respiration use. LUNGS: Unlabored breathing. Clear to auscultation anteriorly. No wheeze or crackle. HEART: S1, S2, regular rate and rhythm. No loud murmur ABDOMEN: Soft, no tenderness , guarding or rigidity, no organomegaly EXTREMITIES: No edema of feet. - Labs CBC & Chem 7: 04/17/22 07:04 04/17/22 07:04 Labs: Abnormal Lab Results - Last 24 Hours (Table) 04/16/22 04/16/22 Range/Units 08:04 08:04 WBC 13.66 H (4.50-10.00) X 10*3/uL Hgb 11.1 L (13.0-17.0) g/dL Hct 36.6 L (39.6-50.0) % MCV 78.7 L (80.0-97.0) fL MCH 23.9 L (27.0-32.0) pg MCHC 30.3 L (32.0-37.0) g/dL RDW 14.6 H (11.5-14.5) % MPV 9.2 L (9.5-12.2) fL Creatinine 0.5 L (0.6-1.5) mg/dL Glucose 195 H (70-110) mg/dL Calcium 8.4 L (8.7-10.3) mg/dL Microbiology - Last 24 Hours (Table) 04/14/22 18:00 Blood Culture - Preliminary Blood No Growth after 48 hours Assessment and Plan (1) Liver abscess Current Visit: Yes Status: Acute Code(s): K75.0 - ABSCESS OF LIVER SNOMED Code(s): 87666405 Plan: 1patient presented to hospital with abnormal labs in this patient did have elevated white count and has been recently treated for pneumonia patient now with abnormal CT suggestive of possible liver abscess did not mention an evidence of empyema on the CT angiogram of the chest. 2Patient is status postIR drainage of this abscess and the fluid has been sent for culture both aerobic and anaerobic 3patient to continue Zosyn while waiting for the culture to finalize Will monitor clinical course closely and adjust antibiotic further on the basis of culture report Time with Patient: Less than 30
[2022-04-18] MEDS: PIPERACILLIN-TAZOBACTAM 3.375 GM in SODIUM CHLORIDE 0.9% 100 ML IVPB SCH ×4 (00:10→23:42)
[2022-04-18] MEDS: SODIUM CHLORIDE 0.9% 1,000 ML IV SCH ×2 (04:50→15:53)
[2022-04-18] MEDS: IBUPROFEN 400 MG TAB PO PRN ×2 (08:57→21:00)
[2022-04-18] MEDS: ATORVASTATIN 10 MG TAB PO SCH (09:20)
[2022-04-18] MEDS: MULTIVITAMINS, THERA 1 EACH TAB PO SCH (09:20)
[2022-04-18] MEDS: ESCITALOPRAM 10 MG TAB PO SCH (09:21)
[2022-04-18] MEDS: FAMOTIDINE 20 MG TAB PO SCH ×2 (09:21→21:00)
[2022-04-18] MEDS: ENOXAPARIN 40 MG/0.4 ML SYRINGE SQ SCH (09:22)
[2022-04-18 10:32] LABS: Basophils # (A) 0.06 X 10*3/uL (0.00-0.10); Basophils % (A) 0.3 %; Eosinophils # (A) 0.14 X 10*3/uL (0.04-0.35); Eosinophils % (A) 0.8 %; HCT 34.2 % (39.6-50.0); HGB 10.4 g/dL (13.0-17.0); Immature Grans, Automated 0.9 %; Lymphocytes # (A) 2.17 X 10*3/uL (0.90-5.00); Lymphocytes % (A) 12.6 %; MCH 24.2 pg (27.0-32.0); MCHC 30.4 g/dL (32.0-37.0); MCV 79.7 fL (80.0-97.0); Mean Platelet Volume 9.1 fL (9.5-12.2); Monocytes # (A) 1.11 X 10*3/uL (0.20-1.00); Monocytes % (A) 6.5 %; NRBC Per 100 WBC 0 /100 WBCS (0.0-0.0); Neutrophils # (A) 13.56 X 10*3/uL (1.80-7.70); Neutrophils % (A) 78.9 %; Platelet Count 341 X 10*3/uL (140-440); RBC 4.29 X 10*6/uL (4.40-5.60); RDW 15.2 % (11.5-14.5); WBC 17.19 X 10*3/uL (4.50-10.00)
[2022-04-18 10:48] LABS: African American GFR (CKD) 159.4 (60.0-200.0); Anion Gap 9.8 mmol/L (10.00-18.00); BUN/Creat Ratio 30.5 Ratio (12.00-20.00); Blood Urea Nitrogen 12.2 mg/dL (9.0-27.0); Calcium 8.4 mg/dL (8.7-10.3); Carbon Dioxide 27.2 mmol/L (20.0-27.5); Non-African American GFR(CKD) 137.5 (60.0-200.0); Potassium 3.7 mmol/L (3.5-5.5)
--- NOTE | 2022-04-18 13:47 | US ---
EXAMINATION TYPE: US guided soft tissue drainage DATE OF EXAM: 04/18/2022 COMPARISON: CT 04/14/2022 HISTORY: Liver abscess. FINDINGS: Maximal barrier technique was utilized. The skin overlying a suitable pocket of fluid in t he posterior right level of the liver was localized and the overlying skin prepped and draped. Lidoc oswaldo was used for local anesthesia. Ultrasound was used with sterile technique. A 21-gauge needle wa s advanced into the abscess using ultrasound guidance and purulent material returned in the hub of th e needle. A 0.018 inch wire was advanced and the access site was subsequently upsized with a transiti onal dilator, wire was increased in size and the access site was dilated, 8.5 Amharic catheter was adv anced over the wire and fixed in place. Purulent material obtained in the hub of the catheter.. 10 cc obtained for laboratory analysis. Catheter attached to gravity drainage. There is no immediate compl ication. The patient discharged in stable condition without complication. IMPRESSION: STATUS POST ULTRASOUND GUIDED RIGHT LOBE LIVER DRAINAGE TUBE CATHETER PLACEMENT. THIS CT OCEDURE WAS PERFORMED BY THE UNDERSIGNED.
--- NOTE | 2022-04-19 00:57 | P.PN ---
Subjective Progress Note Date: 04/16/22 52-year-old pleasant male came in with complaints of a right-sided chest pain. Patient has severe pleuritic pain in the lower rib cage area on the right side. Patient had similar symptoms for last few days she couple weeks and the patient was believed to have pneumonia and was a treated with azithromycin and Augmentin. After transient improvement patient's symptoms came back and his white blood cell count continued to get worse after initial improvement because of which patient came to ER had a CT of the chest which showed some pleural reaction no significant pneumonia CT of the abdomen was done which showed hepatic abscess about 9 cm. Interventional radiology was consulted patient was started on Zosyn IV fluids. Patient had a dental work that was performed recently, which is a removing all his old fillings and replacing them with ones. Patient does have leukocytosis without any fever 04/16/2022 Patient is currently lying in bed. Awake alert and oriented x3. Status post IR guided aspiration of liver abscess and pigtail catheter placement. Fluid culture and cytology was sent. Patient has been afebrile. T-max 99.2. Patient is being current on Zosyn. No complaints of chest pain or shortness of breath. No nausea vomiting or abdominal pain or diarrhea. Current medications reviewed. Objective - Vital Signs Vital signs: Vital Signs Temp 101.1 F H 04/16/22 20:00 Pulse 96 04/16/22 20:00 Resp 18 04/16/22 20:00 BP 157/80 04/16/22 20:00 Pulse Ox 94 L 04/16/22 20:00 FiO2 Intake & Output 04/16/22 04/16/22 04/17/22 06:59 18:59 06:59 Other: # Voids 2 1 - Exam PHYSICAL EXAMINATION: Patient is lying in the bed comfortably, no acute distress, awake alert and oriented.. HEENT: Normocephalic. Neck is supple. Pupils reactive. Nostrils clear. Oral cavity is moist. Neck reveals no JVD, carotid bruits, or thyromegaly. CHEST EXAMINATION: Trachea is central. Symmetrical expansion. Right basilar crackles and coarse breath sounds. No wheezing.. CARDIAC: Normal S1, S2 with no gallops. No murmurs ABDOMEN: Soft. Bowel sounds present. Nontender. No organomegaly. No abdominal bruits. Extremities: reveal no edema. No clubbing or cyanosis Neurologically awake, alert, oriented x3 with well-coordinated movements. No focal deficits noted Skin: No rash or skin lesions. Psychiatric: Coperative. Nonsuicidal, Musculoskeletal: No joint swelling or deformity. Normal range of motion. - Labs CBC & Chem 7: 04/18/22 06:11 04/18/22 06:11 Labs: Abnormal Lab Results - Last 24 Hours (Table) 04/16/22 04/16/22 Range/Units 08:04 08:04 WBC 13.66 H (4.50-10.00) X 10*3/uL Hgb 11.1 L (13.0-17.0) g/dL Hct 36.6 L (39.6-50.0) % MCV 78.7 L (80.0-97.0) fL MCH 23.9 L (27.0-32.0) pg MCHC 30.3 L (32.0-37.0) g/dL RDW 14.6 H (11.5-14.5) % MPV 9.2 L (9.5-12.2) fL Creatinine 0.5 L (0.6-1.5) mg/dL Glucose 195 H (70-110) mg/dL Calcium 8.4 L (8.7-10.3) mg/dL Microbiology - Last 24 Hours (Table) 04/14/22 18:00 Blood Culture - Preliminary Blood No Growth after 48 hours Assessment and Plan Assessment: Assessment and plan -Hepatic abscess: s/p IR guided drainage and pig cayetano catheter, patient will continued on Zosyn, ID is on board -Hypertension patient blood pressure is low normal hold off on hydrocodone thiazide -Hyperlipidemia - diabetes mellitus for which patient on metformin DVT prophylaxis: Lovenox Time with Patient: Greater than 30
--- NOTE | 2022-04-19 00:59 | P.PN ---
Subjective Progress Note Date: 04/17/22 52-year-old pleasant male came in with complaints of a right-sided chest pain. Patient has severe pleuritic pain in the lower rib cage area on the right side. Patient had similar symptoms for last few days she couple weeks and the patient was believed to have pneumonia and was a treated with azithromycin and Augmentin. After transient improvement patient's symptoms came back and his white blood cell count continued to get worse after initial improvement because of which patient came to ER had a CT of the chest which showed some pleural reaction no significant pneumonia CT of the abdomen was done which showed hepatic abscess about 9 cm. Interventional radiology was consulted patient was started on Zosyn IV fluids. Patient had a dental work that was performed recently, which is a removing all his old fillings and replacing them with ones. Patient does have leukocytosis without any fever 04/16/2022 Patient is currently lying in bed. Awake alert and oriented x3. Status post IR guided aspiration of liver abscess and pigtail catheter placement. Fluid culture and cytology was sent. Patient has been afebrile. T-max 99.2. Patient is being current on Zosyn. No complaints of chest pain or shortness of breath. No nausea vomiting or abdominal pain or diarrhea. 04/17/2022 Patient is lying in the bed. Awake alert and oriented x3. Pigtail catheter in place and draining purulent discharge. Patient was febrile last night with T-max of 101.1. Patient was also tachycardic but improved currently. Afebrile now. Fluid culture is pending. No complaints of nausea or vomiting. Patient does have cough and unable to bring out any sputum. No chest pain. No shortness of breath. No complaints of abdominal pain. Current medications reviewed. Objective - Vital Signs Vital signs: Vital Signs Temp 98.0 F 04/18/22 13:15 Pulse 87 04/18/22 13:15 Resp 16 04/18/22 13:15 BP 106/71 04/18/22 13:15 Pulse Ox 97 04/18/22 13:15 FiO2 Intake & Output 04/17/22 04/18/22 04/18/22 18:59 06:59 18:59 Intake Total 600 Output Total 60 30 Balance -60 570 Intake: Intake, IV Titration 600 Amount Sodium Chloride 0.9% 1, 600 000 ml @ 75 mls/hr IV . [id number] [facility] Rx#:[id number] Output: Drainage 60 30 Right Back 60 30 Other: Voiding Method Toilet # Voids 4 3 - Exam PHYSICAL EXAMINATION: Patient is lying in the bed comfortably, no acute distress, awake alert and oriented.. HEENT: Normocephalic. Neck is supple. Pupils reactive. Nostrils clear. Oral cavity is moist. Neck reveals no JVD, carotid bruits, or thyromegaly. CHEST EXAMINATION: Trachea is central. Symmetrical expansion. Right basilar crackles and coarse breath sounds. No wheezing.. CARDIAC: Normal S1, S2 with no gallops. No murmurs ABDOMEN: Soft. Bowel sounds present. Nontender. No organomegaly. No abdominal bruits. Extremities: reveal no edema. No clubbing or cyanosis Neurologically awake, alert, oriented x3 with well-coordinated movements. No focal deficits noted Skin: No rash or skin lesions. Psychiatric: Coperative. Nonsuicidal, Musculoskeletal: No joint swelling or deformity. Normal range of motion. - Labs CBC & Chem 7: 04/18/22 06:11 04/18/22 06:11 Labs: Abnormal Lab Results - Last 24 Hours (Table) 04/18/22 04/18/22 Range/Units 06:11 06:11 WBC 17.19 H (4.50-10.00) X 10*3/uL RBC 4.29 L (4.40-5.60) X 10*6/uL Hgb 10.4 L (13.0-17.0) g/dL Hct 34.2 L (39.6-50.0) % MCV 79.7 L (80.0-97.0) fL MCH 24.2 L (27.0-32.0) pg MCHC 30.4 L (32.0-37.0) g/dL RDW 15.2 H (11.5-14.5) % MPV 9.1 L (9.5-12.2) fL Immature Gran # 0.15 H (0.00-0.04) X 10*3/uL Neutrophils # 13.56 H (1.80-7.70) X 10*3/uL Monocytes # 1.11 H (0.20-1.00) X 10*3/uL Anion Gap 9.80 L (10.00-18.00) mmol/L Creatinine 0.4 L (0.6-1.5) mg/dL BUN/Creatinine Ratio 30.50 H (12.00-20.00) Ratio Glucose 136 H (70-110) mg/dL Calcium 8.4 L (8.7-10.3) mg/dL Microbiology - Last 24 Hours (Table) 04/16/22 15:05 Gram Stain - Preliminary Aspirate Body Fluid Culture - Preliminary 04/17/22 16:03 Acid Fast Bacilli Culture - Preliminary Other - Other 04/17/22 16:03 Fungal Culture - Preliminary Other - Other 04/14/22 18:00 Blood Culture - Preliminary Blood No Growth after 72 hours Assessment and Plan Assessment: Assessment and plan -Hepatic abscess: s/p IR guided drainage and pig cayetano catheter on 04/16, patient will continued on Zosyn, ID is on board -Hypertension patient blood pressure is low normal hold off on hydrocodone thiazide -Hyperlipidemia - diabetes mellitus for which patient on metformin DVT prophylaxis: Lovenox Time with Patient: Greater than 30
[2022-04-19] MEDS: SODIUM CHLORIDE 0.9% 1,000 ML IV SCH ×2 (05:29→14:33)
[2022-04-19] MEDS: IBUPROFEN 400 MG TAB PO PRN ×2 (07:12→20:32)
[2022-04-19] MEDS: PIPERACILLIN-TAZOBACTAM 3.375 GM in SODIUM CHLORIDE 0.9% 100 ML IVPB SCH ×2 (07:13→16:19)
--- NOTE | 2022-04-19 08:49 | P.PN ---
Subjective Progress Note Date: 04/18/22 Principal diagnosis: Liver abscess Patient is a 52-year-old male presented to hospital with abnormal lab in this patient with elevated white count and did have evidence of liver abscess on the CT the patient is status post IR drainage of this abscess completed on 04/16/2022. On today's evaluation that is 04/18/2022, the patient is afebrile this morning , the patient is breathing comfortably on room air, the patient is still complaining of some pain to the drainage catheter insertion site no chest pain or shortness of breath occasional cough no abdominal pain no diarrhea Objective - Vital Signs Vital signs: Vital Signs Temp 97.8 F 04/18/22 07:39 Pulse 88 04/18/22 09:52 Resp 16 04/18/22 09:52 BP 120/76 04/18/22 07:39 Pulse Ox 95 04/18/22 07:39 FiO2 Intake & Output 04/17/22 04/18/22 04/18/22 18:59 06:59 18:59 Output Total 60 Balance -60 Output: Drainage 60 Right Back 60 Other: Voiding Method Toilet # Voids 4 3 - Exam GENERAL DESCRIPTION: Middle-aged male lying in bed, no distress. No tachypnea or accessory muscle of respiration use. LUNGS: Unlabored breathing. Clear to auscultation anteriorly. No wheeze or crackle. HEART: S1, S2, regular rate and rhythm. No loud murmur ABDOMEN: Soft, no tenderness , guarding or rigidity, no organomegaly EXTREMITIES: No edema of feet. - Labs CBC & Chem 7: 04/18/22 06:11 04/18/22 06:11 Labs: Abnormal Lab Results - Last 24 Hours (Table) 04/17/22 04/17/22 Range/Units 07:04 07:04 WBC 34.12 H (4.50-10.00) X 10*3/uL Hgb 11.9 L (13.0-17.0) g/dL Hct 38.1 L (39.6-50.0) % MCV 78.7 L (80.0-97.0) fL MCH 24.6 L (27.0-32.0) pg MCHC 31.2 L (32.0-37.0) g/dL RDW 14.9 H (11.5-14.5) % MPV 9.1 L (9.5-12.2) fL Immature Gran # 0.41 H (0.00-0.04) X 10*3/uL Neutrophils # 28.94 H (1.80-7.70) X 10*3/uL Monocytes # 2.35 H (0.20-1.00) X 10*3/uL Eosinophils # 0.03 L (0.04-0.35) X 10*3/uL Creatinine 0.5 L (0.6-1.5) mg/dL Glucose 152 H (70-110) mg/dL Calcium 8.5 L (8.7-10.3) mg/dL Microbiology - Last 24 Hours (Table) 04/16/22 15:05 Gram Stain - Preliminary Aspirate Body Fluid Culture - Preliminary 04/17/22 16:03 Acid Fast Bacilli Culture - Preliminary Other - Other 04/17/22 16:03 Fungal Culture - Preliminary Other - Other 04/14/22 18:00 Blood Culture - Preliminary Blood No Growth after 72 hours 04/16/22 15:05 Anaerobic Culture - Preliminary Other - Other Assessment and Plan (1) Liver abscess Current Visit: Yes Status: Acute Code(s): K75.0 - ABSCESS OF LIVER SNOMED Code(s): 27065826 Plan: 1patient presented to hospital with abnormal labs in this patient did have elevated white count and has been recently treated for pneumonia patient now with abnormal CT suggestive of possible liver abscess did not mention an evidence of empyema on the CT angiogram of the chest. 2Patient is status postIR drainage of this abscess and the fluid has been sent for culture both aerobic and anaerobic 3patient seemed to some clinical improvement and will continue Zosyn while waiting for the culture to finalize Time with Patient: Less than 30
[2022-04-19 09:10] LABS: Basophils # (A) 0.05 X 10*3/uL (0.00-0.10); Basophils % (A) 0.4 %; Eosinophils # (A) 0.28 X 10*3/uL (0.04-0.35); Eosinophils % (A) 2.1 %; HCT 34.3 % (39.6-50.0); HGB 10.5 g/dL (13.0-17.0); Immature Grans, Automated 0.9 %; Lymphocytes # (A) 2.07 X 10*3/uL (0.90-5.00); Lymphocytes % (A) 15.7 %; MCH 24.2 pg (27.0-32.0); MCHC 30.6 g/dL (32.0-37.0); Mean Platelet Volume 9.1 fL (9.5-12.2); Monocytes # (A) 0.83 X 10*3/uL (0.20-1.00); Monocytes % (A) 6.3 %; NRBC Per 100 WBC 0 /100 WBCS (0.0-0.0); Neutrophils # (A) 9.85 X 10*3/uL (1.80-7.70); Neutrophils % (A) 74.6 %; Platelet Count 343 X 10*3/uL (140-440); RBC 4.34 X 10*6/uL (4.40-5.60); RDW 14.9 % (11.5-14.5)
[2022-04-19 09:13] VITALS: BMI 38.7
[2022-04-19 09:25] LABS: African American GFR (CKD) 159.4 (60.0-200.0); Albumin 2.5 g/dL (3.8-4.9); Albumin/Globulin Ratio 0.89 (1.60-3.17); Anion Gap 10.7 mmol/L (10.00-18.00); BUN/Creat Ratio 32.75 Ratio (12.00-20.00); Blood Urea Nitrogen 13.1 mg/dL (9.0-27.0); Calcium 8.2 mg/dL (8.7-10.3); Carbon Dioxide 25.3 mmol/L (20.0-27.5); Globulin 2.8 g/dL (1.6-3.3); Non-African American GFR(CKD) 137.5 (60.0-200.0); Total Bilirubin 0.3 mg/dL (0.30-1.20); Total Protein 5.3 g/dL (6.2-8.2)
[2022-04-19] MEDS: FAMOTIDINE 20 MG TAB PO SCH ×2 (09:51→20:32)
[2022-04-19] MEDS: ESCITALOPRAM 10 MG TAB PO SCH (09:52)
[2022-04-19] MEDS: MULTIVITAMINS, THERA 1 EACH TAB PO SCH (09:52)
[2022-04-19] MEDS: ATORVASTATIN 10 MG TAB PO SCH (09:52)
[2022-04-19] MEDS: ENOXAPARIN 40 MG/0.4 ML SYRINGE SQ SCH (09:53)
[2022-04-19] MEDS ORDERED: IOPAMIDOL CONTRAST (ORAL USE) VIAL PO PRN (13:11)
[2022-04-19] MEDS: IOPAMIDOL CONTRAST (ORAL USE) VIAL PO PRN ×2 (13:33→14:31)
[2022-04-19] MEDS ORDERED: HYDROmorphone 0.5 MG/0.5 ML SYRINGE IVP STA (15:28)
--- NOTE | 2022-04-19 19:45 | CT ---
EXAMINATION TYPE: CT abdomen pelvis w con CT DLP: 3769.7 mGycm, Automated exposure control for dose reduction was used. DATE OF EXAM: 04/19/2022 5:13 PM COMPARISON: CT chest 04/14/2022, CT abdomen pelvis 04/14/2022 CLINICAL INDICATION:Male, 52 years old with history of R lower back swelling /abscess; R lower back s welling /abscess TECHNIQUE: Axial CT of the abdomen and pelvis. Sagittal and coronal reformats were created on a [employer] workstation. Contrast used:100 mL of Isovue 300 with IV Contrast, Oral contrast used: with Oral Contrast FINDINGS: LOWER CHEST: Similar appearing right lung medial large air cyst cyst versus pneumothorax. ABDOMEN LIVER: There is interval decrease in size of mass seen on 04/14/2022 with drainage catheter in place ho wever slightly retracted into the posterior abdominal wall. Area measures 7.5 x 2.5 x 8.9 cm. GALLBLA DDER AND BILE DUCTS: Unremarkable. PANCREAS: Unremarkable. SPLEEN: Unremarkable. ADRENAL GLANDS: Unremarkable. KIDNEYS AND URETERS: No evidence of hydronephrosis or renal calculus. The ureters are unremarkable. PELVIS BLADDER: Decompressed and suboptimally evaluated. There appears to be possible connection to a loop o f bowel REPRODUCTIVE: Unremarkable. ABDOMEN & PELVIS STOMACH AND BOWEL: No evidence of bowel obstruction. Colonic diverticulosis. Appendix is normal. Ther e is a suspected blind-ending pouch that extends off the sigmoid colon. Best appreciated on series 7 image 28 through 44. PERITONEUM: No evidence of pneumoperitoneum or free fluid. VASCULATURE: No evidence of aortic aneurysm. Scattered atherosclerosis of the arterial vasculature. MUSCULOSKELETAL: No acute osseous abnormalities LYMPH NODES: No gross evidence for lymphadenopathy. SOFT TISSUE/ABDOMINAL WALL: Bilateral fat filled inguinal hernia. IMPRESSION: 1. Decrease in size of right loculated fluid collection with drainage catheter retracted into the po sterior abdominal wall. Subsequent CT-guided imaging with catheter tube reinsertion on the same day d [facility] appropriate placement of new catheter tubing. 2. 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 Evaluation limited without contrast within the colon. Consider barium enema for further evaluation correlate with history of diverticulitis. 3. Right lower lobe pocket of air which is unchanged from CT chest may represent a bulla.
[2022-04-20] MEDS: PIPERACILLIN-TAZOBACTAM 3.375 GM in SODIUM CHLORIDE 0.9% 100 ML IVPB SCH ×3 (00:59→18:09)
[2022-04-20] MEDS: ENOXAPARIN 40 MG/0.4 ML SYRINGE SQ SCH (09:49)
[2022-04-20] MEDS: MULTIVITAMINS, THERA 1 EACH TAB PO SCH (09:49)
[2022-04-20] MEDS: FAMOTIDINE 20 MG TAB PO SCH ×2 (09:49→20:48)
[2022-04-20] MEDS: ESCITALOPRAM 10 MG TAB PO SCH (09:49)
[2022-04-20] MEDS: ATORVASTATIN 10 MG TAB PO SCH (09:49)
[2022-04-20] MEDS: SODIUM CHLORIDE 0.9% 1,000 ML IV SCH (09:50)
[2022-04-20] MEDS: IBUPROFEN 400 MG TAB PO PRN ×2 (09:50→20:55)
[2022-04-20] MEDS: AMPICILLIN-SULBACTAM 3 GM in SODIUM CHLORIDE 0.9% 100 ML IVPB SCH (23:48)
[2022-04-21] MEDS: AMPICILLIN-SULBACTAM 3 GM in SODIUM CHLORIDE 0.9% 100 ML IVPB SCH ×4 (05:47→23:56)
[2022-04-21] MEDS: MULTIVITAMINS, THERA 1 EACH TAB PO SCH (07:27)
[2022-04-21] MEDS: FAMOTIDINE 20 MG TAB PO SCH ×2 (07:27→19:37)
[2022-04-21] MEDS: ENOXAPARIN 40 MG/0.4 ML SYRINGE SQ SCH (07:27)
[2022-04-21] MEDS: ESCITALOPRAM 10 MG TAB PO SCH (07:27)
[2022-04-21] MEDS: ATORVASTATIN 10 MG TAB PO SCH (07:27)
[2022-04-21] MEDS: IBUPROFEN 400 MG TAB PO PRN ×2 (07:29→19:37)
--- NOTE | 2022-04-22 00:05 | P.PN ---
Subjective Progress Note Date: 04/19/22 Principal diagnosis: Liver abscess Patient is a 52-year-old male presented to hospital with abnormal lab in this patient with elevated white count and did have evidence of liver abscess on the CT the patient is status post IR drainage of this abscess completed on 04/16/2022. On today's evaluation that is 04/19/2022, the patient remains to be afebrile , the patient is breathing comfortably on room air, the patient is still complaining of some pain to the drainage catheter insertion site and also have a painful lump to the right lower posterior back, the patient denies chest pain or shortness of breath occasional cough no abdominal pain no diarrhea Objective - Vital Signs Vital signs: Vital Signs Temp 97.6 F 04/19/22 07:28 Pulse 100 04/19/22 07:28 Resp 18 04/19/22 07:28 BP 130/80 04/19/22 07:28 Pulse Ox 96 04/19/22 07:28 FiO2 Intake & Output 04/18/22 04/19/22 04/19/22 18:59 06:59 18:59 Intake Total 600 Output Total 30 110 20 Balance 570 -110 -20 Weight 122.47 kg Intake: Intake, IV Titration 600 Amount Sodium Chloride 0.9% 1, 600 000 ml @ 75 mls/hr IV . [id number] COUNTS INCLUDE 234 BEDS AT THE [facility] Rx#:[id number] Output: Drainage 30 110 20 Right Back 30 110 20 Other: Voiding Method Toilet # Voids 3 - Exam GENERAL DESCRIPTION: Middle-aged male lying in bed, no distress. No tachypnea or accessory muscle of respiration use. LUNGS: Unlabored breathing. Clear to auscultation anteriorly. No wheeze or crackle. HEART: S1, S2, regular rate and rhythm. No loud murmur ABDOMEN: Soft, no tenderness , guarding or rigidity, no organomegaly EXTREMITIES: No edema of feet. - Labs CBC & Chem 7: 04/19/22 06:14 04/19/22 06:14 Labs: Abnormal Lab Results - Last 24 Hours (Table) 04/19/22 04/19/22 Range/Units 06:14 06:14 WBC 13.20 H (4.50-10.00) X 10*3/uL RBC 4.34 L (4.40-5.60) X 10*6/uL Hgb 10.5 L (13.0-17.0) g/dL Hct 34.3 L (39.6-50.0) % MCV 79.0 L (80.0-97.0) fL MCH 24.2 L (27.0-32.0) pg MCHC 30.6 L (32.0-37.0) g/dL RDW 14.9 H (11.5-14.5) % MPV 9.1 L (9.5-12.2) fL Immature Gran # 0.12 H (0.00-0.04) X 10*3/uL Neutrophils # 9.85 H (1.80-7.70) X 10*3/uL Creatinine 0.4 L (0.6-1.5) mg/dL BUN/Creatinine Ratio 32.75 H (12.00-20.00) Ratio Glucose 112 H (70-110) mg/dL Calcium 8.2 L (8.7-10.3) mg/dL ALT 9 L (10-49) U/L Total Protein 5.3 L (6.2-8.2) g/dL Albumin 2.5 L (3.8-4.9) g/dL Albumin/Globulin Ratio 0.89 L (1.60-3.17) g/dL Microbiology - Last 24 Hours (Table) 04/16/22 15:05 Gram Stain - Preliminary Aspirate Body Fluid Culture - Preliminary 04/17/22 16:03 Acid Fast Bacilli Smear - Final Other - Other Acid Fast Bacilli Culture - Preliminary 04/14/22 18:00 Blood Culture - Preliminary Blood No Growth after 96 hours Assessment and Plan (1) Liver abscess Current Visit: Yes Status: Acute Code(s): K75.0 - ABSCESS OF LIVER SNOMED Code(s): 43791514 Plan: 1patient presented to hospital with abnormal labs in this patient did have elevated white count and has been recently treated for pneumonia patient now with abnormal CT suggestive of possible liver abscess did not mention an evidence of empyema on the CT angiogram of the chest. 2Patient is status postIR drainage of this abscess and the fluid has been sent for culture both aerobic and anaerobic 3patient did have developed new swelling to the right posterior back area with concern for possible mispositioning of the drainage catheter CT will be repeated and the patient be continued on Zosyn Time with Patient: Less than 30
--- NOTE | 2022-04-22 00:07 | P.PN ---
Subjective Progress Note Date: 04/20/22 Principal diagnosis: Liver abscess Patient is a 52-year-old male presented to hospital with abnormal lab in this patient with elevated white count and did have evidence of liver abscess on the CT the patient is status post IR drainage of this abscess completed on 04/16/2022. The patient did not have any repositioning of the drainage catheter on 04/19/2022 On today's evaluation that is 04/20/2022, the patient continues to be afebrile , the patient is breathing comfortably on room air, the patient pain to the drainage catheter insertion site has decreased in intensity, patient denies having any chest pain shortness of breath or cough no abdominal pain no diarrhea Objective - Vital Signs Vital signs: Vital Signs Temp 98.1 F 04/20/22 14:00 Pulse 90 04/20/22 14:00 Resp 16 04/20/22 14:00 BP 127/76 04/20/22 14:00 Pulse Ox 97 04/20/22 14:00 FiO2 97 04/20/22 07:04 Intake & Output 04/19/22 04/20/22 04/20/22 18:59 06:59 18:59 Intake Total 800 Output Total 20 Balance 780 Weight 122.47 kg Intake: Intake, IV Titration 800 Amount Piperacillin-Tazobactam 3 200 .375 gm In Sodium Chloride 0.9% 100 ml @ 25 mls/hr IVPB Q8HR [facility] Rx# :[id number] Sodium Chloride 0.9% 1, 600 000 ml @ 75 mls/hr IV . [id number] [facility] Rx#:[id number] Output: Drainage 20 Right Back 20 Other: Voiding Method Toilet Toilet # Voids 2 - Exam GENERAL DESCRIPTION: Middle-aged male lying in bed, no distress. No tachypnea or accessory muscle of respiration use. LUNGS: Unlabored breathing. Clear to auscultation anteriorly. No wheeze or cras ckle. HEART: S1, S2, regular rate and rhythm. No loud murmur ABDOMEN: Soft, no tenderness , guarding or rigidity, no organomegaly EXTREMITIES: No edema of feet. - Labs CBC & Chem 7: 04/19/22 06:14 04/19/22 06:14 Labs: Microbiology - Last 24 Hours (Table) 04/16/22 15:05 Gram Stain - Preliminary Aspirate Body Fluid Culture - Preliminary 04/14/22 18:00 Blood Culture - Preliminary Blood No Growth after 120 hours Assessment and Plan (1) Liver abscess Current Visit: Yes Status: Acute Code(s): K75.0 - ABSCESS OF LIVER SNOMED Code(s): 42082745 Plan: 1patient presented to hospital with abnormal labs in this patient did have elevated white count and has been recently treated for pneumonia patient now with abnormal CT suggestive of possible liver abscess did not mention an evidence of empyema on the CT angiogram of the chest. 2Patient is status postIR drainage of this abscess and the fluid, culture now growing strep and anaerobes 3patient did have repositioning of the drainage catheter on 04/29/2022 4-we will discontinue Zosyn and start the patient on Unasyn 3 g every 6 hours Time with Patient: Less than 30
--- NOTE | 2022-04-22 00:08 | P.PN ---
Subjective Progress Note Date: 04/21/22 Principal diagnosis: Liver abscess Patient is a 52-year-old male presented to hospital with abnormal lab in this patient with elevated white count and did have evidence of liver abscess on the CT the patient is status post IR drainage of this abscess completed on 04/16/2022. The patient did not have any repositioning of the drainage catheter on 04/19/2022 On today's evaluation that is 04/21/2022, the patient denies any fever or any chills, the patient is breathing comfortably on room air, the patient pain has decreased in intensity, patient denies having any chest pain shortness of breath or cough no abdominal pain no diarrhea Objective - Vital Signs Vital signs: Vital Signs Temp 98.2 F 04/21/22 07:42 Pulse 74 04/21/22 07:42 Resp 18 04/21/22 07:42 BP 132/84 04/21/22 07:42 Pulse Ox 97 04/21/22 07:42 FiO2 97 04/20/22 07:04 Intake & Output 04/20/22 04/21/22 04/21/22 18:59 06:59 18:59 Intake Total 300 Output Total 50 Balance -50 300 Intake: Oral 300 Output: Drainage 50 Right Back 50 Other: Voiding Method Toilet Toilet Toilet # Voids 4 4 # Bowel Movements 1 1 - Exam GENERAL DESCRIPTION: Middle-aged male lying in bed, no distress. No tachypnea or accessory muscle of respiration use. LUNGS: Unlabored breathing. Clear to auscultation anteriorly. No wheeze or crac kle. HEART: S1, S2, regular rate and rhythm. No loud murmur ABDOMEN: Soft, no tenderness , guarding or rigidity, no organomegaly EXTREMITIES: No edema of feet. - Labs CBC & Chem 7: 04/19/22 06:14 04/19/22 06:14 Labs: Microbiology - Last 24 Hours (Table) 04/16/22 15:05 Anaerobic Culture - Final Other - Other Anaerobic Gm Negative Bacilli Alpha Hemolytic Streptococcus 04/16/22 15:05 Gram Stain - Final Aspirate Body Fluid Culture - Final 04/14/22 18:00 Blood Culture - Final Blood No Growth after 144 hours Assessment and Plan (1) Liver abscess Current Visit: Yes Status: Acute Code(s): K75.0 - ABSCESS OF LIVER SNOMED Code(s): 37403503 Plan: 1patient presented to hospital with abnormal labs in this patient did have elevated white count and has been recently treated for pneumonia patient now with abnormal CT suggestive of possible liver abscess did not mention an evidence of empyema on the CT angiogram of the chest. 2Patient is status postIR drainage of this abscess and the fluid, culture now growing strep and anaerobes 3patient did have repositioning of the drainage catheter on 04/29/2022 4-patient to continue with Unasyn 3 g every 6 hours, patient will get a PICC line for outpatient IV antibiotic therapy Time with Patient: Less than 30
--- NOTE | 2022-04-22 02:35 | P.PN ---
Subjective Progress Note Date: 04/21/22 52-year-old pleasant male came in with complaints of a right-sided chest pain. Patient has severe pleuritic pain in the lower rib cage area on the right side. Patient had similar symptoms for last few days she couple weeks and the patient was believed to have pneumonia and was a treated with azithromycin and Augmentin. After transient improvement patient's symptoms came back and his white blood cell count continued to get worse after initial improvement because of which patient came to ER had a CT of the chest which showed some pleural reaction no significant pneumonia CT of the abdomen was done which showed hepatic abscess about 9 cm. Interventional radiology was consulted patient was started on Zosyn IV fluids. Patient had a dental work that was performed recently, which is a removing all his old fillings and replacing them with ones. Patient does have leukocytosis without any fever 04/16/2022 Patient is currently lying in bed. Awake alert and oriented x3. Status post IR guided aspiration of liver abscess and pigtail catheter placement. Fluid culture and cytology was sent. Patient has been afebrile. T-max 99.2. Patient is being current on Zosyn. No complaints of chest pain or shortness of breath. No nausea vomiting or abdominal pain or diarrhea. 04/17/2022 Patient is lying in the bed. Awake alert and oriented x3. Pigtail catheter in place and draining purulent discharge. Patient was febrile last night with T-max of 101.1. Patient was also tachycardic but improved currently. Afebrile now. Fluid culture is pending. No complaints of nausea or vomiting. Patient does have cough and unable to bring out any sputum. No chest pain. No shortness of breath. No complaints of abdominal pain. 04/21/2022 Patient is currently sitting in the chair comfortably. Awake alert and oriented x3. Denies any complaints of pain at the right side of the abdomen at the catheter site. Patient has been afebrile. No nausea vomiting abdominal diarrhea tolerating oral diet. Leg swelling did improve. Antibiotics changed to Unasyn. Abscess culture showed anaerobic gram-negative bacilli and alphahemolytic Streptococcus. Laboratory data reviewed. Current medications reviewed. Objective - Vital Signs Vital signs: Vital Signs Temp 98.2 F 04/21/22 18:27 Pulse 78 04/21/22 18:27 Resp 18 09/11/22 18:27 BP 123/79 04/21/22 18:27 Pulse Ox 97 04/21/22 18:27 FiO2 97 04/20/22 07:04 Intake & Output 04/21/22 04/21/22 04/22/22 06:59 18:59 06:59 Intake Total 300 Output Total 20 Balance 300 -20 Intake: Oral 300 Output: Drainage 20 Right Back 20 Other: Voiding Method Toilet Toilet # Voids 4 3 # Bowel Movements 1 1 - Exam PHYSICAL EXAMINATION: Patient is lying in the bed comfortably, no acute distress, awake alert and oriented.. HEENT: Normocephalic. Neck is supple. Pupils reactive. Nostrils clear. Oral cavity is moist. Neck reveals no JVD, carotid bruits, or thyromegaly. CHEST EXAMINATION: Trachea is central. Symmetrical expansion. Right basilar crackles and coarse breath sounds. No wheezing.. CARDIAC: Normal S1, S2 with no gallops. No murmurs ABDOMEN: Soft. Bowel sounds present. Nontender. No organomegaly. No abdominal bruits. Extremities: reveal no edema. No clubbing or cyanosis Neurologically awake, alert, oriented x3 with well-coordinated movements. No focal deficits noted Skin: No rash or skin lesions. Psychiatric: Coperative. Nonsuicidal, Musculoskeletal: No joint swelling or deformity. Normal range of motion. - Labs CBC & Chem 7: 04/19/22 06:14 04/19/22 06:14 Labs: Microbiology - Last 24 Hours (Table) 04/16/22 15:05 Anaerobic Culture - Final Other - Other Anaerobic Gm Negative Bacilli Alpha Hemolytic Streptococcus 04/16/22 15:05 Gram Stain - Final Aspirate Body Fluid Culture - Final 04/14/22 18:00 Blood Culture - Final Blood No Growth after 144 hours Assessment and Plan Assessment: Assessment and plan -Hepatic abscess: s/p IR guided drainage and pig cayetano catheter on 04/16, Abscess cultures growing alphahemolytic Streptococcus. Antibiotics changed to Unasyn from Zosyn. -Hypertension patient blood pressure is low normal hold off on hydrocodone thiazide -Hyperlipidemia - diabetes mellitus for which patient on metformin DVT prophylaxis: Lovenox
[2022-04-22] MEDS: AMPICILLIN-SULBACTAM 3 GM in SODIUM CHLORIDE 0.9% 100 ML IVPB SCH ×4 (06:12→23:41)
[2022-04-22] MEDS: ESCITALOPRAM 10 MG TAB PO SCH (10:02)
[2022-04-22] MEDS: ATORVASTATIN 10 MG TAB PO SCH (10:02)
[2022-04-22] MEDS: MULTIVITAMINS, THERA 1 EACH TAB PO SCH (10:02)
[2022-04-22] MEDS: FAMOTIDINE 20 MG TAB PO SCH ×2 (10:03→20:34)
[2022-04-22] MEDS: ENOXAPARIN 40 MG/0.4 ML SYRINGE SQ SCH (10:03)
[2022-04-22 10:30] LABS: Basophils # (A) 0.07 X 10*3/uL (0.00-0.10); Basophils % (A) 0.8 %; Eosinophils # (A) 0.26 X 10*3/uL (0.04-0.35); Eosinophils % (A) 3.1 %; Immature Grans, Automated 1.2 %; Lymphocytes # (A) 2.23 X 10*3/uL (0.90-5.00); Lymphocytes % (A) 26.9 %; MCH 24.2 pg (27.0-32.0); MCHC 30.6 g/dL (32.0-37.0); MCV 79.3 fL (80.0-97.0); Mean Platelet Volume 8.8 fL (9.5-12.2); Monocytes # (A) 0.58 X 10*3/uL (0.20-1.00); NRBC Per 100 WBC 0 /100 WBCS (0.0-0.0); Neutrophils # (A) 5.05 X 10*3/uL (1.80-7.70); Platelet Count 382 X 10*3/uL (140-440); RBC 4.54 X 10*6/uL (4.40-5.60); WBC 8.29 X 10*3/uL (4.50-10.00)
[2022-04-22 10:45] LABS: African American GFR (CKD) 145.4 (60.0-200.0); Anion Gap 10.3 mmol/L (10.00-18.00); BUN/Creat Ratio 15.8 Ratio (12.00-20.00); Blood Urea Nitrogen 7.9 mg/dL (9.0-27.0); C Reactive Protein 1.7 mg/dL (0.00-0.80); Calcium 8.8 mg/dL (8.7-10.3); Carbon Dioxide 27.7 mmol/L (20.0-27.5); Non-African American GFR(CKD) 125.5 (60.0-200.0); Potassium 4.4 mmol/L (3.5-5.5)
[2022-04-22] MEDS ORDERED: LIDOCAINE 1% INJ 10MG/ML (30 ML VIAL-PF) SQ ONE ×2 (15:14→15:16)
--- NOTE | 2022-04-22 15:46 | IR ---
PICC LINE PLACEMENT: HISTORY: Infection requiring long-term antibiotic therapy PROCEDURE: Ultrasound and fluoroscopic guidance of PICC line placement. COMPLICATIONS: None ANESTHESIA: 1. 1% Lidocaine locally. FINDINGS/TECHNIQUE: The procedure was explained to the patient. The risks, complications, benefits and alternatives were discussed and any questions were answered. Informed consent was obtained. The patient was placed supine on the fluoroscopic table and prepped and draped in the usual sterile fash ion. Utilizing a 21 gauge needle and sonographic and fluoroscopic guidance, access in the left basi lic vein was achieved and there is placement of a 0.018 guidewire. The vein is patent. A 4-F sheath was placed over the guidewire. The guidewire and dilator were removed and a 4-F. PICC line was plac ed through the sheath with the tip at the level of the SVC. The sheath was removed, the catheter was flushed and sutured into position. The patient was stable throughout the procedure and remained sta ble upon discharge from the Department of Radiology. The vein puncture was patent under ultrasound. A garcia scale image was obtained to document patency of the vein punctured. All elements of the maximal barrier technique were utilized. FLUOROSCOPY TIME: 0.1 minute and one image submitted IMPRESSION: Successful PICC line placement under ultrasound and fluoroscopic guidance.
[2022-04-22] MEDS: IBUPROFEN 400 MG TAB PO PRN (20:34)
--- NOTE | 2022-04-23 00:18 | P.PN ---
Subjective Progress Note Date: 04/22/22 52-year-old pleasant male came in with complaints of a right-sided chest pain. Patient has severe pleuritic pain in the lower rib cage area on the right side. Patient had similar symptoms for last few days she couple weeks and the patient was believed to have pneumonia and was a treated with azithromycin and Augmentin. After transient improvement patient's symptoms came back and his white blood cell count continued to get worse after initial improvement because of which patient came to ER had a CT of the chest which showed some pleural reaction no significant pneumonia CT of the abdomen was done which showed hepatic abscess about 9 cm. Interventional radiology was consulted patient was started on Zosyn IV fluids. Patient had a dental work that was performed recently, which is a removing all his old fillings and replacing them with ones. Patient does have leukocytosis without any fever 04/16/2022 Patient is currently lying in bed. Awake alert and oriented x3. Status post IR guided aspiration of liver abscess and pigtail catheter placement. Fluid culture and cytology was sent. Patient has been afebrile. T-max 99.2. Patient is being current on Zosyn. No complaints of chest pain or shortness of breath. No nausea vomiting or abdominal pain or diarrhea. 04/17/2022 Patient is lying in the bed. Awake alert and oriented x3. Pigtail catheter in place and draining purulent discharge. Patient was febrile last night with T-max of 101.1. Patient was also tachycardic but improved currently. Afebrile now. Fluid culture is pending. No complaints of nausea or vomiting. Patient does have cough and unable to bring out any sputum. No chest pain. No shortness of breath. No complaints of abdominal pain. 04/21/2022 Patient is currently sitting in the chair comfortably. Awake alert and oriented x3. Denies any complaints of pain at the right side of the abdomen at the catheter site. Patient has been afebrile. No nausea vomiting abdominal diarrhea tolerating oral diet. Leg swelling did improve. Antibiotics changed to Unasyn. Abscess culture showed anaerobic gram-negative bacilli and alphahemolytic Streptococcus. Laboratory data reviewed. 04/22/2022 Patient is seen and evaluated in follow-up today and continued on IV abx of Unasyn with ID following closely. Patient with a large deductible, but agreeable to outpatient IV abx and is scheduled to receive a PICC line today. Case management following and arranging for abx. Patient is afebrile and denies chest pain or palpitations. Patient continues with pigtail catheter of the liver abscess and was repositioned yesterday. Possible discharge in 24 hours. Review of systems: Constitutional: No reports of fatigue, fever, or chills Cardiovascular: No reports of chest pain or palpitations Respiratory: No reports of shortness of breath or cough GI: No reports of nausea, vomiting, or diarrhea : No reports of dysuria or retention Neurovascular: No reports of weakness or numbness All medications have been reviewed PHYSICAL EXAMINATION: Patient is lying in the bed comfortably, no acute distress, awake alert and oriented.. HEENT: Normocephalic. Neck is supple. Pupils reactive. Nostrils clear. Oral cavity is moist. Neck reveals no JVD, carotid bruits, or thyromegaly. CHEST EXAMINATION: Trachea is central. Symmetrical expansion. Right basilar crackles and coarse breath sounds. No wheezing.. CARDIAC: Normal S1, S2 with no gallops. No murmurs ABDOMEN: Soft. Bowel sounds present. Nontender. No organomegaly. No abdominal bruits. Extremities: reveal no edema. No clubbing or cyanosis Neurologically awake, alert, oriented x3 with well-coordinated movements. No focal deficits noted Skin: No rash or skin lesions. Psychiatric: Cooperative. Non-suicidal, Musculoskeletal: No joint swelling or deformity. Normal range of motion. Assessment: -Hepatic abscess: s/p IR guided drainage and pig tail catheter on 04/16, Abscess cultures growing alphahemolytic Streptococcus. Antibiotics changed to Unasyn from Zosyn. ID following and PICC line ordered -Hypertension, patient blood pressure is low normal hold off on hydrochlorothiazide -Hyperlipidemia -diabetes mellitus for which patient on metformin -DVT prophylaxis: Lovenox -full code Plan: Recommend patient to receive a PICC line with ID following as well as case management arranging for outpatient antibiotics and patient is agreeable. Cultures showing alpha hemolytic strep and continues with drain of the liver. with recent adjustment of the catheter Abx being transitioned to Unasyn and will arrange outpatient with possible discharge in 24 hours. The impression and plan of care has been dictated by Arlen Stephen, Nurse Practitioner as directed. Dr. Jersey MD I have performed a history and examination and MDM of this patient, discussed the same with the dictator, and agree with the dictator's assessment and plan as written ,documented as a scribe. Based on total visit time, I have performed more than 50% of the visit. Objective - Vital Signs Vital signs: Vital Signs Temp 98.2 F 04/22/22 08:00 Pulse 95 04/22/22 08:00 Resp 18 04/22/22 08:00 BP 132/89 04/22/22 08:00 Pulse Ox 97 04/22/22 08:00 FiO2 97 04/20/22 07:04 Intake & Output 04/21/22 04/22/22 04/22/22 18:59 06:59 18:59 Output Total 20 30 Balance -20 -30 Output: Drainage 20 30 Right Back 20 30 Other: Voiding Method Toilet Toilet Toilet # Voids 3 2 # Bowel Movements 1 - Labs CBC & Chem 7: 04/22/22 06:21 04/22/22 06:21 Labs: Abnormal Lab Results - Last 24 Hours (Table) 04/22/22 04/22/22 Range/Units 06:21 06:21 Hgb 11.0 L (13.0-17.0) g/dL Hct 36.0 L (39.6-50.0) % MCV 79.3 L (80.0-97.0) fL MCH 24.2 L (27.0-32.0) pg MCHC 30.6 L (32.0-37.0) g/dL RDW 15.0 H (11.5-14.5) % MPV 8.8 L (9.5-12.2) fL Immature Gran # 0.10 H (0.00-0.04) X 10*3/uL Carbon Dioxide 27.7 H (20.0-27.5) mmol/L BUN 7.9 L (9.0-27.0) mg/dL Creatinine 0.5 L (0.6-1.5) mg/dL C-Reactive Protein 1.70 H (0.00-0.80) mg/dL Microbiology - Last 24 Hours (Table) 04/16/22 15:05 Anaerobic Culture - Final Other - Other Anaerobic Gm Negative Bacilli Alpha Hemolytic Streptococcus
[2022-04-23] MEDS: AMPICILLIN-SULBACTAM 3 GM in SODIUM CHLORIDE 0.9% 100 ML IVPB SCH (05:46)
[2022-04-23] MEDS: FAMOTIDINE 20 MG TAB PO SCH ×2 (09:52→20:51)
[2022-04-23] MEDS: ENOXAPARIN 40 MG/0.4 ML SYRINGE SQ SCH (09:52)
[2022-04-23] MEDS: ATORVASTATIN 10 MG TAB PO SCH (09:52)
[2022-04-23] MEDS: MULTIVITAMINS, THERA 1 EACH TAB PO SCH (09:52)
[2022-04-23] MEDS: ESCITALOPRAM 10 MG TAB PO SCH (09:53)
--- NOTE | 2022-04-23 12:40 | CT ---
EXAMINATION TYPE: CT abdomen wo con DATE OF EXAM: 04/19/2022 COMPARISON: 04/29/2010 HISTORY: R lower back swelling /abscess CT DLP: 1333.9 mGycm Automated exposure control for dose reduction was used. TECHNIQUE: Helical acquisition of images was performed from the lung bases through the top of iliac crest to include entire abdomen. CONTRAST: Performed without Oral Contrast and without IV contrast. FINDINGS: Prone imaging images were obtained to assess position of the drainage catheter. There remai ns a abscess collection. Catheter appears retracted into the posterior abdominal wall along the lower margin of the abscess collection. A metallic marker may be within the soft tissues outside the absce ss cavity. IMPRESSION: 1. Limited prone images again demonstrate a retracted catheter along the posterior flank musculature. Should be correlated to determine if catheter is draining appropriately. Metallic marker may be outs vlad the abdominal cavity and within the soft tissues. Correlate clinically.
[2022-04-23] MEDS: metroNIDAZOLE 500 MG TAB PO SCH ×2 (16:58→22:55)
--- NOTE | 2022-04-23 17:40 | CT ---
EXAMINATION TYPE: CT abdomen wo con DATE OF EXAM: 04/23/2022 COMPARISON: 04/19/2022 HISTORY: DRAIN CT DLP: 1236 mGycm Automated exposure control for dose reduction was used. Images obtained from the diaphragm to the iliac crest with no contrast. There is some mild subsegmental atelectasis right lung base. Heart size is normal. No pericardial eff usion. There is a pigtail drainage catheter in the right upper quadrant posteriorly adjacent to the posterio r right lobe of the liver. There is some hypodensity in the adjacent liver and measures 6 x 3 cm. The spleen is intact. Stomach is intact. No pancreatic mass. Gallbladder appears normal. The bile ducts are not dilated. There is no adrenal mass. Kidneys have normal size. No hydronephrosis. No sign of a bowel obstruction. No mesenteric edema. No ascites. The lumbar spine is intact. IMPRESSION: Pigtail drainage catheter in the subphrenic space posterior to the right lobe of the liver. There is subcapsular and subphrenic complex fluid consistent with abscess which is slightly smaller than the C T scan of 04/19/2022. No evidence of new fluid collection.
--- NOTE | 2022-04-23 22:24 | P.PN ---
Subjective Progress Note Date: 04/22/22 Principal diagnosis: Liver abscess Patient is a 52-year-old male presented to hospital with abnormal lab in this patient with elevated white count and did have evidence of liver abscess on the CT the patient is status post IR drainage of this abscess completed on 04/16/2022. The patient did not have any repositioning of the drainage catheter on 04/19/2022 On today's evaluation that is 04/22/2022, the patient remains to be afebrile, the patient is breathing comfortably on room air, the patient right-sided abdominal pain has decreased in intensity, patient denies having any chest pain shortness of breath or cough and no diarrhea Objective - Vital Signs Vital signs: Vital Signs Temp 98.2 F 04/22/22 08:00 Pulse 95 04/22/22 08:00 Resp 18 04/22/22 08:00 BP 132/89 04/22/22 08:00 Pulse Ox 97 04/22/22 08:00 FiO2 97 04/20/22 07:04 Intake & Output 04/21/22 04/22/22 04/22/22 18:59 06:59 18:59 Output Total 20 30 Balance -20 -30 Output: Drainage 20 30 Right Back 20 30 Other: Voiding Method Toilet Toilet Toilet # Voids 3 2 # Bowel Movements 1 - Exam GENERAL DESCRIPTION: Middle-aged male lying in bed, no distress. No tachypnea or accessory muscle of respiration use. LUNGS: Unlabored breathing. Clear to auscultation anteriorly. No wheeze or crackle. HEART: S1, S2, regular rate and rhythm. No loud murmur ABDOMEN: Soft, no tenderness , guarding or rigidity, no organomegaly EXTREMITIES: No edema of feet. - Labs CBC & Chem 7: 04/22/22 06:21 04/22/22 06:21 Labs: Abnormal Lab Results - Last 24 Hours (Table) 04/22/22 04/22/22 Range/Units 06:21 06:21 Hgb 11.0 L (13.0-17.0) g/dL Hct 36.0 L (39.6-50.0) % MCV 79.3 L (80.0-97.0) fL MCH 24.2 L (27.0-32.0) pg MCHC 30.6 L (32.0-37.0) g/dL RDW 15.0 H (11.5-14.5) % MPV 8.8 L (9.5-12.2) fL Immature Gran # 0.10 H (0.00-0.04) X 10*3/uL Carbon Dioxide 27.7 H (20.0-27.5) mmol/L BUN 7.9 L (9.0-27.0) mg/dL Creatinine 0.5 L (0.6-1.5) mg/dL C-Reactive Protein 1.70 H (0.00-0.80) mg/dL Microbiology - Last 24 Hours (Table) 04/16/22 15:05 Anaerobic Culture - Final Other - Other Anaerobic Gm Negative Bacilli Alpha Hemolytic Streptococcus 04/16/22 15:05 Gram Stain - Final Aspirate Body Fluid Culture - Final Assessment and Plan (1) Liver abscess Current Visit: Yes Status: Acute Code(s): K75.0 - ABSCESS OF LIVER SNOMED Code(s): 42486086 Plan: 1patient presented to hospital with abnormal labs in this patient did have elevated white count and has been recently treated for pneumonia patient now with abnormal CT suggestive of possible liver abscess did not mention an evidence of empyema on the CT angiogram of the chest. 2Patient is status postIR drainage of this abscess and the fluid, culture now growing strep and anaerobes 3patient did have repositioning of the drainage catheter on 04/19/2022 4-patient currently being treated with Unasyn 3 g every 6 hours, patient will get a PICC line for outpatient IV antibiotic therapy in the form of Rocephin and Flagyl Time with Patient: Less than 30
--- NOTE | 2022-04-23 22:25 | P.PN ---
Subjective Progress Note Date: 04/23/22 Principal diagnosis: Liver abscess Patient is a 52-year-old male presented to hospital with abnormal lab in this patient with elevated white count and did have evidence of liver abscess on the CT the patient is status post IR drainage of this abscess completed on 04/16/2022. The patient did not have any repositioning of the drainage catheter on 04/19/2022 On today's evaluation that is 04/23/2022, the patient continues to be afebrile, the patient is breathing comfortably on room air, the patient right-sided abdominal pain has decreased in intensity however the patient seemed to have some drainage around the catheter started last night still have output in the drainage catheter, the patient denies having any chest pain shortness of breath or cough and no diarrhea Objective - Vital Signs Vital signs: Vital Signs Temp 97.7 F 04/23/22 02:00 Pulse 85 04/22/22 14:00 Resp 15 04/23/22 08:00 BP 128/79 04/23/22 02:00 Pulse Ox 94 L 04/23/22 02:00 FiO2 97 04/20/22 07:04 Intake & Output 04/22/22 04/23/22 04/23/22 18:59 06:59 18:59 Intake Total 550 540 Output Total 37 15 Balance 513 525 Intake: Intake, IV Titration 100 200 Amount Ampicillin-Sulbactam 3 gm 100 200 In Sodium Chloride 0.9% 100 ml @ 200 mls/hr IVPB Q6HR [facility] Rx#:[id number] Oral 450 340 Output: Drainage 37 15 Right Back 37 15 Other: Voiding Method Toilet Toilet # Voids 3 2 2 - Exam GENERAL DESCRIPTION: Middle-aged male lying in bed, no distress. No tachypnea or accessory muscle of respiration use. LUNGS: Unlabored breathing. Clear to auscultation anteriorly. No wheeze or cr ackle. HEART: S1, S2, regular rate and rhythm. No loud murmur ABDOMEN: Soft, no tenderness , guarding or rigidity, no organomegaly EXTREMITIES: No edema of feet. - Labs CBC & Chem 7: 04/22/22 06:21 04/22/22 06:21 Assessment and Plan (1) Liver abscess Current Visit: Yes Status: Acute Code(s): K75.0 - ABSCESS OF LIVER SNOMED Code(s): 14215466 Plan: 1patient presented to hospital with abnormal labs in this patient did have elevated white count and has been recently treated for pneumonia patient now with abnormal CT suggestive of possible liver abscess did not mention an evidence of empyema on the CT angiogram of the chest. 2Patient is status postIR drainage of this abscess and the fluid, culture now growing strep and anaerobes 3patient did have repositioning of the drainage catheter on 04/19/2022, patient seemed to have some drainage around the catheter should be reevaluated by IR before the patient's discharge 4-patient antibiotic will be switched over to Rocephin 2 g daily and oral Flagyl plan is for 2 weeks of IV antibiotic in the outpatient setting Time with Patient: Less than 30
[2022-04-24 02:54] VITALS: RESP 16
--- NOTE | 2022-04-24 06:19 | P.PN ---
Subjective Progress Note Date: 04/23/22 52-year-old pleasant male came in with complaints of a right-sided chest pain. Patient has severe pleuritic pain in the lower rib cage area on the right side. Patient had similar symptoms for last few days she couple weeks and the patient was believed to have pneumonia and was a treated with azithromycin and Augmentin. After transient improvement patient's symptoms came back and his white blood cell count continued to get worse after initial improvement because of which patient came to ER had a CT of the chest which showed some pleural reaction no significant pneumonia CT of the abdomen was done which showed hepatic abscess about 9 cm. Interventional radiology was consulted patient was started on Zosyn IV fluids. Patient had a dental work that was performed recently, which is a removing all his old fillings and replacing them with ones. Patient does have leukocytosis without any fever 04/16/2022 Patient is currently lying in bed. Awake alert and oriented x3. Status post IR guided aspiration of liver abscess and pigtail catheter placement. Fluid culture and cytology was sent. Patient has been afebrile. T-max 99.2. Patient is being current on Zosyn. No complaints of chest pain or shortness of breath. No nausea vomiting or abdominal pain or diarrhea. 04/17/2022 Patient is lying in the bed. Awake alert and oriented x3. Pigtail catheter in place and draining purulent discharge. Patient was febrile last night with T-max of 101.1. Patient was also tachycardic but improved currently. Afebrile now. Fluid culture is pending. No complaints of nausea or vomiting. Patient does have cough and unable to bring out any sputum. No chest pain. No shortness of breath. No complaints of abdominal pain. 04/21/2022 Patient is currently sitting in the chair comfortably. Awake alert and oriented x3. Denies any complaints of pain at the right side of the abdomen at the catheter site. Patient has been afebrile. No nausea vomiting abdominal diarrhea tolerating oral diet. Leg swelling did improve. Antibiotics changed to Unasyn. Abscess culture showed anaerobic gram-negative bacilli and alphahemolytic Streptococcus. Laboratory data reviewed. 04/22/2022 Patient is seen and evaluated in follow-up today and continued on IV abx of Unasyn with ID following closely. Patient with a large deductible, but agreeable to outpatient IV abx and is scheduled to receive a PICC line today. Case management following and arranging for abx. Patient is afebrile and denies chest pain or palpitations. Patient continues with pigtail catheter of the liver abscess and was repositioned yesterday. Possible discharge in 24 hours. 04/23/2022 Patient was scheduled for discharge today although noted to have some clear drainage around the pigtail catheter site on the back right side and ID following and requesting dressing change and evaluation by IR to assess for dislodged pigtail catheter. Will hold dc for today and awaiting dressing change kit and repeat ct being ordered to assess location of the drain. HOme care and outpatient abx being arranged and patient did receive his picc line. Patient is afebrile and denies chest pain or shortness of breath. Review of systems: Constitutional: No reports of fatigue, fever, or chills Cardiovascular: No reports of chest pain or palpitations Respiratory: No reports of shortness of breath or cough GI: No reports of nausea, vomiting, or diarrhea : No reports of dysuria or retention Neurovascular: No reports of weakness or numbness All medications have been reviewed PHYSICAL EXAMINATION: Patient is sitting in the chair comfortably, no acute distress, awake alert and oriented.. HEENT: Normocephalic. Neck is supple. Pupils reactive. Nostrils clear. Oral cavity is moist. Neck reveals no JVD, carotid bruits, or thyromegaly. CHEST EXAMINATION: Trachea is central. Symmetrical expansion. Right coarse breath sounds. No wheezing.. CARDIAC: Normal S1, S2 with no gallops. No murmurs ABDOMEN: Soft. Bowel sounds present. Nontender. No organomegaly. No abdominal bruits. Extremities: reveal no edema. No clubbing or cyanosis Neurologically awake, alert, oriented x3 with well-coordinated movements. No focal deficits noted Skin: No rash or skin lesions. Psychiatric: Cooperative. Non-suicidal, Musculoskeletal: No joint swelling or deformity. Normal range of motion. Assessment: -Hepatic abscess: s/p IR guided drainage and pig tail catheter on 04/16, Abscess cultures growing alphahemolytic Streptococcus. Antibiotics changed to Unasyn from Zosyn. ID following and PICC line placed in the left upper extremity -Hypertension, patient blood pressure is low normal hold off on hydrochlorothiazide -Hyperlipidemia -diabetes mellitus for which patient on metformin -DVT prophylaxis: Lovenox -full code Plan: Recommend patient to continue with abx and being switched to Rocephin with ID following as well as case management arranging for outpatient antibiotics and patient is agreeable. Cultures showing alpha hemolytic strep and continues with drain of the liver. with recent adjustment of the catheter, some leaking around the site and awaiting dressing change and evaluation by IR prior to discharge. There is garth nued drainage noted in the bag as well. Recommend holding discharge for today and repeat CT ordered. Abx being transitioned to ceftriaxone and oral flagyl and will arrange outpatient with possible discharge in 24 hours. The impression and plan of care has been dictated by Arlen Stephen, Nurse Practitioner as directed. Dr. Alejandra MD I have performed a history and examination and MDM of this patient, discussed the same with the dictator, and agree with the dictator's assessment and plan as written ,documented as a scribe. Based on total visit time, I have performed more than 50% of the visit. Objective - Vital Signs Vital signs: Vital Signs Temp 98.0 F 04/23/22 20:10 Pulse 85 04/22/22 14:00 Resp 17 04/23/22 20:10 BP 146/84 04/23/22 20:10 Pulse Ox 97 04/23/22 20:10 FiO2 97 04/20/22 07:04 Intake & Output 04/23/22 04/23/22 04/24/22 06:59 18:59 06:59 Intake Total 540 750 Output Total 15 Balance 525 750 Intake: Intake, IV Titration 200 200 Amount Ampicillin-Sulbactam 3 gm 200 200 In Sodium Chloride 0.9% 100 ml @ 200 mls/hr IVPB Q6HR [facility] Rx#:[id number] Oral 340 550 Output: Drainage 15 Right Back 15 Other: Voiding Method Toilet # Voids 2 4 - Labs CBC & Chem 7: 04/22/22 06:21 04/22/22 06:21
[2022-04-24] MEDS: FAMOTIDINE 20 MG TAB PO SCH (09:11)
[2022-04-24] MEDS: MULTIVITAMINS, THERA 1 EACH TAB PO SCH (09:11)
[2022-04-24] MEDS: ATORVASTATIN 10 MG TAB PO SCH (09:11)
[2022-04-24] MEDS: metroNIDAZOLE 500 MG TAB PO SCH ×2 (09:11→15:51)
[2022-04-24] MEDS: ESCITALOPRAM 10 MG TAB PO SCH (09:12)
[2022-04-24] MEDS: ENOXAPARIN 40 MG/0.4 ML SYRINGE SQ SCH (10:41)
[2022-04-24 16:32] VITALS: BP 135/78; PULSE 69; TEMP 98
== END 2022-04-24 16:12 | disposition home health service (06) | DRG 442 ==
LOC: EC 12:42 → 4SSUR 19:24
PROVIDERS: ADMIT Internal Medicine; ATTEND Internal Medicine
PROC: 0F9130Z Drainage of Right Lobe Liver with Drainage Device, Percutaneous Approach (ICD-10-PCS; 2022-04-18)
PROC: 02HV33Z Insertion of Infusion Device into Superior Vena Cava, Percutaneous Approach (ICD-10-PCS; principal; 2022-04-22 22:00)
DX: K75.0 Abscess of liver (principal); J98.11 Atelectasis; E66.9 Obesity, unspecified; I10 Essential (primary) hypertension; E11.9 Type 2 diabetes mellitus without complications; B95.4 Other streptococcus as the cause of diseases classified elsewhere; E78.5 Hyperlipidemia, unspecified; R03.1 Nonspecific low blood-pressure reading; M79.89 Other specified soft tissue disorders; Z68.38 Body mass index [BMI] 38.0-38.9, adult; Z87.01 Personal history of pneumonia (recurrent); Z79.899 Other long term (current) drug therapy; Z79.84 Long term (current) use of oral hypoglycemic drugs; Z87.442 Personal history of urinary calculi; Z86.010 Personal history of colon polyps; Z90.89 Acquired absence of other organs; Z98.890 Other specified postprocedural states
CPT/HCPCS: 10030; 36415; 36573; 71046; 71275; 74150; 74177; 76942; 80048; 80053; 81001; 82105; 84484; 85025; 85027; 85610; 86140; 87040; 87070; 87075; 87102; 87116; 87205; 87206; 88108; 88305; 88312; 93005; 96365; 96366; 99285

== ENCOUNTER → 2022-05-03 | Outpatient (CLI) | payer OTHER ==
--- NOTE | 2022-05-03 16:24 | CT ---
EXAMINATION TYPE: CT abdomen w con DATE OF EXAM: 05/03/2022 COMPARISON: 04/23/2022 HISTORY: Liver abcess CT DLP: 2362.0 mGycm CONTRAST: CT scan of the abdomen is performed with Oral Contrast and with IV Contrast, patient injected with 9 0 mL of Isovue 300. FINDINGS: LUNG BASES-: No visible nodule. No infiltrate. LIVER/GB: Again noted is pigtail catheter adjacent to the right hepatic lobe. Hypodensity within the adjacent liver may reflect the residual phlegmon measuring 6.3 cm in maximal dimension versus 6 cm pr eviously. Small amount of perinephric hepatic fluid and phlegmonous change noted. No new collections seen. Gallbladder is unremarkable. PANCREAS: No inflammation. No distinct mass. SPLEEN: No splenic enlargement. No lesion seen. ADRENALS: No nodule. No thickening. KIDNEYS/BLADDER: No hydronephrosis. No nephrolithiasis. No distinct renal mass. Urinary bladder g rossly unremarkable. BOWEL: Normal appendix. Normal bowel caliber. No inflammation. LYMPH NODES: No greater than 1cm abdominal or pelvic lymph nodes are appreciated. AORTA: No significant abnormality. OSSEOUS STRUCTURES: No significant abnormality is seen. OTHER: No significant additional abnormality is seen. IMPRESSION: 1. No significant change in small perihepatic collection and intrahepatic phlegmon.
== END | disposition home or self-care (01) ==
LOC: RADCTMAIN 13:49
PROVIDERS: ATTEND Internal Medicine Infectious Disease
DX: K75.0 Abscess of liver (principal)
CPT/HCPCS: 74160; Q9967 ×2

== ENCOUNTER → 2022-05-03 | Day surgery (SDC) | payer OTHER ==
[2022-05-03 15:23] VITALS: BP 109/71; PULSE 98; RESP 16; TEMP 98.1
== END ==
LOC: RADPROMAIN 14:10
PROVIDERS: ATTEND Radiology Diagnostic Radiology
DX: Z53.9 Procedure and treatment not carried out, unspecified reason (principal)
CPT/HCPCS: 74160

== ENCOUNTER → 2022-06-06 | Outpatient (CLI) | payer OTHER ==
[2022-06-06 15:34] LABS: African American GFR (CKD) >90 (>60 ml/min/1.73 sqM); Blood Urea Nitrogen 10 mg/dL (9-20); Non-African American GFR(CKD) >90 (>60 ml/min/1.73 sqM)
--- NOTE | 2022-06-06 16:17 | CT ---
EXAMINATION TYPE: CT abdomen w con CT DLP: 2003.8 mGycm, Automated exposure control for dose reduction was used. DATE OF EXAM: 06/06/2022 4:05 PM COMPARISON: CT abdomen 05/03/2022, 04/23/2022. CLINICAL INDICATION:Male, 52 years old with history of K75.0 ABSCESS OF LIVER; f/u liver abscess TECHNIQUE: Standard CT of the abdomen following the administration of 100 cc of Isovue 300 IV contr ast material and oral contrast. Coronal and sagittal reformats were performed. FINDINGS: LOWER CHEST: Lung bases are clear. Coronary artery calcifications. ABDOMEN LIVER: Decrease in size of hypoattenuating 4.0 x 3.4 cm subcapsular right hepatic lobe lesion (series 3, image 19 ), previously 6.3 cm. No internal gas identified. Interval removal of pigtail catheter. Decrease in small perihepatic fluid. No new collections seen. GALLBLADDER AND BILE DUCTS: Unremarkable. PANCREAS: Unremarkable. SPLEEN: Unremarkable. ADRENAL GLANDS: Unremarkable. KIDNEYS AND URETERS: No evidence of hydronephrosis or renal calculus. The kidneys enhance symmetrical ly without focal lesion. STOMACH AND BOWEL: Unremarkable. No evidence of bowel obstruction. PERITONEUM: No evidence of pneumoperitoneum or free fluid. VASCULATURE: No evidence of aortic aneurysm. MUSCULOSKELETAL: No acute osseous abnormalities. Mild degenerative disease. LYMPH NODES: No gross evidence for lymphadenopathy. SOFT TISSUE/ABDOMINAL WALL: Unremarkable IMPRESSION: 1. Decrease in size of small perihepatic collection/intrahepatic phlegmon from prior examination. 2. Interval removal of pigtail catheter.
== END | disposition home or self-care (01) ==
LOC: RADCTMAIN 14:52
PROVIDERS: ATTEND Internal Medicine Infectious Disease
DX: K75.0 Abscess of liver (principal); Z46.82 Encounter for fitting and adjustment of non-vascular catheter
CPT/HCPCS: 82565; 84520; 74160; 36415; Q9967 ×2

== ENCOUNTER → 2022-07-19 | Outpatient (CLI) | payer OTHER ==
[2022-07-19 16:06] LABS: African American GFR (CKD) >90 (>60 ml/min/1.73 sqM); Blood Urea Nitrogen 11 mg/dL (9-20); Non-African American GFR(CKD) >90 (>60 ml/min/1.73 sqM)
--- NOTE | 2022-07-19 20:05 | CT ---
EXAMINATION TYPE: CT abdomen w con CT DLP: 2059.5 mGycm, Automated exposure control for dose reduction was used. DATE OF EXAM: 07/19/2022 4:52 PM COMPARISON: CT abdomen pelvis most recent from 06/06/2022 CLINICAL INDICATION:Male, 52 years old with history of K75.0 ABSCESS OF LIVER; f/u liver abscess TECHNIQUE: Axial CT of the abdomen . Sagittal and coronal reformats were created on a separate works tation. Contrast used:100 mL of Isovue 300 with IV Contrast, Oral contrast used: with Oral Contrast FINDINGS: LOWER CHEST: Unremarkable ABDOMEN LIVER: Visualized portions of the liver demonstrate decrease in size of right peripheral area of decr eased attenuation measuring 3.0 x 1.9 cm, previously 4.5 x 2.8 cm. GALLBLADDER AND BILE DUCTS: Unremarkable. PANCREAS: Unremarkable. SPLEEN: Unremarkable. ADRENAL GLANDS: Unremarkable. KIDNEYS AND URETERS: No evidence of hydronephrosis or renal calculus. The ureters are unremarkable. STOMACH AND BOWEL: No evidence of bowel obstruction. There is a large stool burden throughout the col on. The appendix is normal. Scattered clonic diverticula. PERITONEUM: No evidence of pneumoperitoneum or free fluid. VASCULATURE: No evidence of aortic aneurysm. MUSCULOSKELETAL: No acute osseous abnormalities LYMPH NODES: No gross evidence for lymphadenopathy. SOFT TISSUE/ABDOMINAL WALL: Unremarkable IMPRESSION: 1. Decrease in right hepatic lobe peripheral abscess. 2. No evidence for additional acute process going on in the abdomen and pelvis. 3. Colonic diverticulosis.
== END | disposition home or self-care (01) ==
LOC: RADCTMAIN 15:16
PROVIDERS: ATTEND Internal Medicine Infectious Disease
DX: K75.0 Abscess of liver (principal); K57.30 Diverticulosis of large intestine without perforation or abscess without bleeding
CPT/HCPCS: 82565; 84520; 74160; 36415; Q9967

== ENCOUNTER 2024-05-11 07:08 | Day surgery (SDC) | payer OTHER ==
[2024-05-07 15:27] VITALS: BMI 43.3
[~2024-05-11 07:08] MED LIST changes: -LACTATED RINGERS 1,000 ML IV SCH; +LIDOCAINE 1% (10MG/ML) FOR IV START INTRADERMA PRN; -LIDOCAINE 1% 20 ML VIAL (10MG/ML) FOR IV START INTRADERMA PRN
[2024-05-11 07:55] VITALS: TEMP 98
[2024-05-11] MEDS: IV FLUID CONTINUATION 1,000 ML IV ONE (07:56)
[2024-05-11] MEDS: LACTATED RINGERS 1,000 ML IV SCH (07:58)
[2024-05-11 08:04] LABS: Glucose,Whole Blood 97 mg/dL (70-110)
[2024-05-11] MEDS ORDERED: LIDOCAINE 2% (PF) 20 MG/ML 5 ML VIAL ONE (08:09)
[2024-05-11] MEDS ORDERED: PROPOFOL 10 MG/ML 20 ML VIAL IV ONE (08:09)
--- NOTE | 2024-05-11 08:13 | P.GSHP ---
History of Present Illness H&P Date: 05/11/24 Chief Complaint: Colon cancer screening 54-year-old male here for colonoscopy. Last colonoscopy 5 years ago. Patient has a personal history of colon polyps. Last visit a small polyp was noted but the biopsy showed no adenomatous tissue. No bowel complaints. No family hi story of colon cancer. Past Medical History Past Medical History: Hyperlipidemia, Pneumonia, Skin Disorder Additional Past Medical History / Comment(s): hx. kidney stones, hx. colon polyps, hx of abscess on liver, psoriasis History of Any Multi-Drug Resistant Organisms: None Reported Past Surgical History: Appendectomy, Tonsillectomy Additional Past Surgical History / Comment(s): colonoscopyx2 Past Anesthesia/Blood Transfusion Reactions: No Reported Reaction Smoking Status: Never smoker - Past Family History Mother Family Medical History: No Reported History Medications and Allergies Home Medications Medication Instructions Recorded Confirmed Type Atorvastatin [Lipitor] 10 mg PO DAILY 09/09/18 05/11/24 History Escitalopram [Lexapro] 10 mg PO DAILY 09/09/18 05/11/24 History Multivit-Min/Folic/Vit K/Lycop 1 tab PO DAILY 04/14/22 05/11/24 History [Men's Multivitamin Tablet] metFORMIN HCL [Glucophage] 500 mg PO BID-W/MEALS 04/14/22 05/11/24 History Allergies Allergy/AdvReac Type Severity Reaction Status Date / Time No Known Allergies Allergy Verified 05/11/24 07:57 Surgical - Exam Vital Signs Temp Pulse Resp BP Pulse Ox 98 F 75 16 170/91 98 05/11/24 07:54 05/11/24 07:54 05/11/24 07:54 05/11/24 07:54 05/11/24 07:54 Physical exam: General: Well-developed, well-nourished HEENT: Normocephalic, sclerae nonicteric Abdomen: Nontender, nondistended Extremities: No edema Neuro: Alert and oriented Assessment and Plan (1) Colon cancer screening Narrative/Plan: Will proceed with colonoscopy at this time. Current Visit: No Status: Acute Code(s): Z12.11 - ENCOUNTER FOR SCREENING FOR MALIGNANT NEOPLASM OF COLON SNOMED Code(s): 790139775
--- NOTE | 2024-05-11 08:34 | P.PCN ---
Date of Procedure: 05/11/24 Procedure(s) Performed: PREOPERATIVE DIAGNOSIS: Colon cancer screening, history of colon polyps POSTOPERATIVE DIAGNOSIS: Diverticulosis, prominent ileocecal valve PROCEDURE: Colonoscopy with biopsy ANESTHESIA: MAC SURGEON: Rony Faye M.D. SPECIMENS: Ileocecal valve ENDOSCOPIC PROCEDURE: The patient was placed on the endoscopy table in the left decubitus position. The Olympus colonoscope was inserted into the anus and passed under direct visualization to the base of the cecum. The appendiceal joe fice was visualized. From that point the scope was slowly withdrawn inspecting all surfaces carefully. The cecal valve itself appeared protuberant. A biopsy was taken of the valve to rule out adenomatous tissue although this looked more like a lipomatous valve. There were no neoplastic inflammatory or polypoid lesions throughout the cecum, ascending, transverse, descending, sigmoid and rectum. There was moderate left-sided diverticulosis noted. Digital rectal examination was normal. The patient was taken to the recovery room in stable condition per anesthesia guidelines. RECOMMENDATIONS: Await biopsy results. If no adenomatous tissue recommend repeat colonoscopy 7 years.
[2024-05-11 08:43] VITALS: RESP 18
[2024-05-11 08:55] VITALS: BP 125/83; PULSE 65
== END 2024-05-11 09:25 | disposition home or self-care (01) ==
LOC: ORWHC2ENDO 07:08
PROVIDERS: ATTEND Surgery
DX: Z12.11 Encounter for screening for malignant neoplasm of colon (principal); K57.30 Diverticulosis of large intestine without perforation or abscess without bleeding; E78.5 Hyperlipidemia, unspecified; Z79.84 Long term (current) use of oral hypoglycemic drugs
CPT/HCPCS: 88305; 45380; J2704; J2003

== ENCOUNTER 2024-12-18 09:42 | Emergency (ER) | payer OTHER ==
--- NOTE | 2024-12-18 10:04 | ED ---
General Adult HPI - General Chief complaint: Arrhythmia/Palpitations Stated complaint: Irrg BP Time Seen by Provider: 12/18/24 09:52 Source: patient, family, RN notes reviewed Mode of arrival: ambulatory Limitations: no limitations - History of Present Illness Initial comments: Patient is a 54-year-old male present to the emergency department with concerns for hypertension. Patient does have history of hypertension and is on amlodipine. Blood pressure at home was as high as 190/90. Patient felt fluttering. Heart rate was as high as 80. Patient took several blood pressures and had several in the mid 160s over upper 80s. No chest pain or dyspnea. Patient did sustain a dog bite to his right lower leg from his dog 7 days ago however feels this is healing well and does not want further treatment for this. - Related Data Home Medications Medication Instructions Recorded Confirmed Atorvastatin [Lipitor] 10 mg PO DAILY 09/09/18 05/11/24 Escitalopram [Lexapro] 10 mg PO DAILY 09/09/18 05/11/24 Multivit-Min/Folic/Vit K/Lycop 1 tab PO DAILY 04/14/22 05/11/24 [Men's Multivitamin Tablet] metFORMIN HCL [Glucophage] 500 mg PO BID-W/MEALS 04/14/22 05/11/24 Allergies Allergy/AdvReac Type Severity Reaction Status Date / Time No Known Allergies Allergy Verified 12/18/24 09:48 Review of Systems ROS Statement: Those systems with pertinent positive or pertinent negative responses have been documented in the HPI. ROS Other: All systems not noted in ROS Statement are negative. Constitutional: Denies: fever Eyes: Denies: eye pain ENT: Denies: ear pain Respiratory: Denies: cough Cardiovascular: Reports: as per HPI, palpitations. Denies: chest pain Skin: Reports: as per HPI Past Medical History Past Medical History: Hyperlipidemia, Pneumonia, Skin Disorder Additional Past Medical History / Comment(s): hx. kidney stones, hx. colon polyps, hx of abscess on liver, psoriasis History of Any Multi-Drug Resistant Organisms: None Reported Past Surgical History: Appendectomy, Tonsillectomy Additional Past Surgical History / Comment(s): colonoscopyx2 Past Anesthesia/Blood Transfusion Reactions: No Reported Reaction Past Psychological History: Anxiety Smoking Status: Never smoker - Past Family History Mother Family Medical History: No Reported History General Exam Limitations: no limitations General appearance: alert, in no apparent distress Head exam: Present: normocephalic Eye exam: Present: normal appearance Neck exam: Present: normal inspection Respiratory exam: Present: normal lung sounds bilaterally Cardiovascular Exam: Present: regular rate, normal rhythm, normal heart sounds Expanded Peripheral pulses: 2+: Radial (R), Radial (L) GI/Abdominal exam: Present: soft. Absent: tenderness Extremities exam: Present: normal inspection Neurological exam: Present: alert Psychiatric exam: Present: normal affect, normal mood Skin exam: Present: other (Right lower leg with mild erythema that does appear to be healing consistent with history of dog bite) Course Vital Signs 12/18/24 12/18/24 12/18/24 09:44 10:23 10:42 Temperature 98.1 F 97.8 F Pulse Rate 78 77 77 Respiratory 17 18 18 Rate Blood Pressure 168/95 139/90 139/84 O2 Sat by Pulse 96 97 94 L Oximetry 12/18/24 12/18/24 11:08 11:36 Temperature Pulse Rate 74 66 Respiratory 18 18 Rate Blood Pressure 133/66 142/82 O2 Sat by Pulse 94 L 95 Oximetry EKG Findings - EKG Results: EKG: interpreted by ERMD (Left axis.), sinus rhythm, normal QRS, normal ST/T Medical Decision Making - Medical Decision Making Was pt. sent in by a medical professional or institution ([facility], [employer], urgent care, hospital, or correction...) When possible be specific @ -No Did you speak to anyone other than the patient for history (EMS, parent, family, police, friend...)? What history was obtained from this source @ -Family's present helps provide history including blood pressure readings Did you review nursing and triage notes (agree or disagree)? Why? @ -I reviewed and agree with nursing and triage notes Were old charts reviewed (outside hosp., previous admission, EMS record, old EKG, old radiological studies, urgent care reports/EKG's, correction records)? Report findings @ -No old charts were reviewed Differential Diagnosis (chest pain, altered mental status, abdominal pain women, abdominal pain men, vaginal bleeding, weakness, fever, dyspnea, syncope, headache, dizziness, GI bleed, back pain, seizure, CVA, palpatations, mental health, musculoskeletal)? @ -Differential Dizziness: Benign paroxysmal positional Vertigo, Meniere's disease, otitis media, acoustic neuroma, vertebrobasilar insufficiency, cerebellar stroke, encephalitis, hyp ovolemic, arrhythmia, coronary artery syndrome, anemia, this is not meant to be an all-inclusive list EKG interpreted by me (3pts min.). @ -As above X-rays interpreted by me (1pt min.). @ -Chest x-ray interpreted by myself shows no acute abnormality CT interpreted by me (1pt min.). @ -None done U/S interpreted by me (1pt. min.). @ -None done What testing was considered but not performed or refused? (CT, X-rays, U/S, labs)? Why? @ -None What meds were considered but not given or refused? Why? @ -None Did you discuss the management of the patient with other professionals (professionals i.e. , PA, [employer], lab, RT, psych nurse, psychotherapist social worker, paper ruler, teacher, technology officer, case advocate)? Give summary @ -No Was smoking cessation discussed for >3mins.? @ -No Was critical care preformed (if so, how long)? @ -No Were there social determinants of health that impacted care today? How? ( Homelessness, low income, unemployed, alcoholism, drug addiction, transportation, low edu. Level, literacy, decrease access to med. care, mcc, rehab)? @ -No Was there de-escalation of care discussed even if they declined (Discuss DNR or withdrawal of care, Hospice)? DNR status @ -No What co-morbidities impacted this encounter? (DM, HTN, Smoking, COPD, CAD, Cancer, CVA, ARF, Chemo, Hep., AIDS, mental health diagnosis, sleep apnea, morbid obesity)? @ -History of hypertension Was patient admitted / discharged? Hospital course, mention meds given and route, prescriptions, significant lab abnormalities, going to OR and other pertinent info. @ -Patient presents with concern for hypertension and palpitations. Evaluation unremarkable. Heart rate and blood pressure remained stable. Patient will be discharged with follow-up with primary care physician. Patient reevaluated and updated. Undiagnosed new problem with uncertain prognosis? @ -No Drug Therapy requiring intensive monitoring for toxicity (Heparin, Nitro, Insulin, Cardizem)? @ -No Were any procedures done? @ -No Diagnosis/symptom? @ -Palpitations Acute, or Chronic, or Acute on Chronic? @ -Acute Uncomplicated (without systemic symptoms) or Complicated (systemic symptoms)? @ -Default Side effects of treatment? @ -No Exacerbation, Progression, or Severe Exacerbation? @ -No Poses a threat to life or bodily function? How? (Chest pain, [place], [place], pneumonia, PE, COPD, DKA, ARF, appy, cholecystitis, CVA, Diverticulitis, Homicidal, Suicidal, threat to staff... and all critical care pts) @ -No - Lab Data Result diagrams: 12/18/24 10:16 12/18/24 10:16 Lab Results 12/18/24 12/18/24 12/18/24 Range/Units 10:16 10:16 10:16 WBC 7.03 (4.50-10.00) 10*3/uL RBC 5.36 (4.40-5.60) 10*6/uL Hgb 15.5 (13.0-17.0) g/dL Hct 45.0 (39.6-50.0) % MCV 84.0 (80.0-97.0) fL MCH 28.9 (27.0-32.0) pg MCHC 34.4 (32.0-37.0) g/dL Plt Count 219 (140-440) 10*3/uL MPV 9.7 (9.5-12.2) fL Immature Gran % (Auto) 0.4 % Neutrophils % 60.4 % Lymphocytes % 27.0 % Monocytes % 8.5 % Eosinophils % 2.8 % Basophils % 0.9 % Immature Gran # 0.03 (0.00-0.04) 10*3/uL Neutrophils # 4.24 (1.80-7.70) 10*3/uL Lymphocytes # 1.90 (0.90-5.00) 10*3/uL Monocytes # 0.60 (0.20-1.00) 10*3/uL Eosinophils # 0.20 (0.04-0.35) 10*3/uL Basophils # 0.06 (0.00-0.10) 10*3/uL PT 11.4 (10.0-12.5) sec INR 1.0 (<1.2) APTT 25.4 (22.0-30.0) sec Sodium 140 (137-145) mmol/L Potassium 4.0 (3.5-5.1) mmol/L Chloride 105 (98-107) mmol/L Carbon Dioxide 26 (22-30) mmol/L Anion Gap 9 mmol/L BUN 13 (9-20) mg/dL Creatinine 0.56 L (0.66-1.25) mg/dL Est GFR (CKD-EPI)AfAm >90 (>60 ml/min/1.73 sqM) Est GFR (CKD-EPI)NonAf >90 (>60 ml/min/1.73 sqM) Glucose 120 H (74-99) mg/dL Calcium 9.3 (8.4-10.2) mg/dL Magnesium 1.9 (1.6-2.3) mg/dL Total Bilirubin 0.7 (0.2-1.3) mg/dL AST 25 (17-59) U/L ALT 21 (4-49) U/L Alkaline Phosphatase 61 (38-126) U/L Total Protein 6.8 (6.3-8.2) g/dL Albumin 4.1 (3.5-5.0) g/dL TSH 1.660 (0.465-4.680) mIU/L Disposition Clinical Impression: Palpitations Disposition: HOME SELF-CARE Condition: Stable Instructions (If sedation given, give patient instructions): Heart Palpitations (ED) Additional Instructions: Please do follow-up with your primary care physician in the next couple of days for recheck. Provide your primary care physician with a log of heart rate and blood pressure readings. Return for increased heart rate, increased blood pressure, worsening symptoms or any other concerns. Is patient prescribed a controlled substance at d/c from ED?: No Referrals: Thien Darling DO [Primary Care Provider] - 1-2 days Time of Disposition: 12:02
[2024-12-18] MEDS: DIPH,PERTUS(ACELL)TETVAC-LF 0.5 ML VIAL IM ONE (10:18)
[2024-12-18 10:28] LABS: Basophils # (A) 0.06 10*3/uL (0.00-0.10); Basophils % (A) 0.9 %; Eosinophils % (A) 2.8 %; HGB 15.5 g/dL (13.0-17.0); MCH 28.9 pg (27.0-32.0); MCHC 34.4 g/dL (32.0-37.0); Mean Platelet Volume 9.7 fL (9.5-12.2); Monocytes % (A) 8.5 %; Neutrophils # (A) 4.24 10*3/uL (1.80-7.70); Neutrophils % (A) 60.4 %; Platelet Count 219 10*3/uL (140-440); RBC 5.36 10*6/uL (4.40-5.60); RDW 12.3 % (11.5-14.5); WBC 7.03 10*3/uL (4.50-10.00)
[2024-12-18 10:29] VITALS: RESP 18
[2024-12-18 10:49] LABS: Partial Thromboplastin Time 25.4 sec (22.0-30.0); Prothrombin Time 11.4 sec (10.0-12.5)
[2024-12-18 10:50] LABS: ALT 21 U/L (4-49); AST 25 U/L (17-59); African American GFR (CKD) >90 (>60 ml/min/1.73 sqM); Albumin 4.1 g/dL (3.5-5.0); Alkaline Phosphatase 61 U/L (38-126); Anion Gap 9 mmol/L; Blood Urea Nitrogen 13 mg/dL (9-20); Calcium 9.3 mg/dL (8.4-10.2); Carbon Dioxide 26 mmol/L (22-30); Chloride 105 mmol/L (98-107); Glucose 120 mg/dL (74-99); Magnesium 1.9 mg/dL (1.6-2.3); Non-African American GFR(CKD) >90 (>60 ml/min/1.73 sqM); Sodium 140 mmol/L (137-145); Total Bilirubin 0.7 mg/dL (0.2-1.3); Total Protein 6.8 g/dL (6.3-8.2)
--- NOTE | 2024-12-18 10:50 | XR ---
EXAMINATION TYPE: XR chest 2V DATE OF EXAM: 12/18/2024 10:15 AM COMPARISON: Chest radiographs from 04/14/2022. CLINICAL INDICATION: Male, 54 years old with history of dysrhythmia; [facility] TECHNIQUE: XR chest 2V Frontal and lateral views of the chest. FINDINGS: Lungs/Pleura: There is no evidence of pleural effusion, focal consolidation, or pneumothorax. Pulmonary vascularity: Unremarkable. Heart/mediastinum: Cardiomediastinal silhouette is unremarkable. Musculoskeletal: No acute osseous pathology. Other findings: None IMPRESSION: No acute cardiopulmonary disease/process. [facility], , 12/18/2024 10:48 AM
[2024-12-18 12:09] LABS: T4, Free (Free Thyroxine) 1.11 ng/dL (0.78-2.19)
[2024-12-18 12:14] VITALS: BP 135/76; PULSE 69; TEMP 98.1
== END 2024-12-18 12:14 | disposition home or self-care (01) ==
LOC: EC 09:42
DX: R00.2 Palpitations (principal); I10 Essential (primary) hypertension; Z23 Encounter for immunization
CPT/HCPCS: 36415; 71046; 80053; 83735; 84439; 84443; 84481; 85025; 85610; 85730; 90471; 90715; 93005; 99285

== ENCOUNTER → 2025-03-03 | Outpatient (CLI) | payer OTHER ==
[2025-03-03 16:42] VITALS: BP 143/91; PULSE 76; RESP 16; TEMP 98
--- NOTE | 2025-03-03 17:10 | P.SLEEP ---
History of Present Illness DATE: 03/03/2025 CONSULTATION/NEW PATIENT EVALUATION HISTORY OF PRESENT ILLNESS/SLEEP-WAKE EVALUATION: 54-year-old gentleman had b een evaluated in the sleep center for possible obstructive sleep apnea hypopnea syndrome. SLEEP SCHEDULE: Usually sleep schedule from 29515 PM to 4:15 AM 1 working days and until 6 AM on weekend. FALLING ASLEEP: No problems with falling asleep. DURING SLEEP: Patient snores and wakes up from sleep 5 times with 4 episodes of nocturia. No history of hypnogogical hallucinations, sleep paralysis, or cataplexy. DURING THE DAY/WAKE STATE: During the day patient feels significantly sleepy. [place] sleepiness scale is increased to 15. Patient does not take scheduled naps, but may fall asleep during the day. PAST MEDICAL HISTORY: Anxiety, hyperlipidemia, prediabetes, hypertension. PAST SURGICAL HISTORY: Appendectomy, surgical treatment for liver abscess. MEDICATIONS: Please see below. SOCIAL HISTORY: Please see below. FAMILY HISTORY: Please see below. REVIEW OF SYSTEMS: Snoring, multiple awakenings from sleep, sleepiness during the day. No fevers. No double vision. No recent chest pain. No shortness of breath. No abdominal pain. No bleeding episodes. No blood in urine. No seizure episodes. PHYSICAL EXAMINATION: GENERAL: A pleasant patient without any distress. VITAL SIGNS: Please see below, weight 319 pounds, BMI 47.1. HEENT: PERRLA, EOMI. Evaluation of oropharynx showed tongue protrudes midline, low position of soft palate Mallampati 4. NECK: Supple. No JVD. Thyroid is not palpable. 17 inches in circumference. LUNGS: Clear to percussion and to auscultation. Good air exchange. No wheezing or rhonchi. HEART: S1, S2 regular. No murmurs, gallops or rubs. ABDOMEN: Soft and nontender. Bowel sounds are present. No organomegaly appreciated. EXTREMITIES: No clubbing or cyanosis. [employer] MARKETING SPECIALIST: Awake, alert, and oriented x3. Cranial nerves 2 to 7 intact. There is no f asciculation or atrophy noted. No focal deficits observed. ASSESSMENT: 1. Snoring, multiple awakenings from sleep, extremely low position of soft palate Mallampati 4, wide neck 17 inches in circumference, sleepiness with [place] Sleepiness Scale 15. Obstructive sleep apnea hypopnea syndrome. 2. Obesity, BMI 47.1. 3. Hypertension. 4. Hyperlipidemia. 5 history of anxiety. 6 . Prediabetes. 7. Status post appendectomy. 8. Status post surgical treatment for liver abscess. PLAN: 1. Polysomnography for evaluation of patient's breathing during sleep. 2. Following plan after reading sleep study. 3. Preferable position during sleep on the side. 4. No driving if patient feels any sleepiness. Patient is aware of civil and criminal liability for unsafe driving. 5. Sleep hygiene with regular sleep time for at least 7.5-8 hours. 6. Watching and losing weight. Thank you very much for referring this patient for consultation. Sincerely, Kartik Powell MD, PhD, FAASM. Diplomat of [place] [employer], Sleep Medicine Board by [place] [employer] [place] [employer] [facility] [place] cc: Thien Darling DO Past Medical History Past Medical History: Hyperlipidemia, Pneumonia, Skin Disorder Additional Past Medical History / Comment(s): hx. kidney stones, hx. colon polyps, hx of abscess on liver, psoriasis History of Any Multi-Drug Resistant Organisms: None Reported Past Surgical History: Appendectomy, Tonsillectomy Additional Past Surgical History / Comment(s): colonoscopyx2 Past Anesthesia/Blood Transfusion Reactions: No Reported Reaction Past Psychological History: Anxiety Smoking Status: Never smoker Past Alcohol Use History: None Reported Past Drug Use History: None Reported - Past Family History Mother Family Medical History: No Reported History Medications and Allergies Home Medications Medication Instructions Recorded Confirmed Type Atorvastatin [Lipitor] 10 mg PO DAILY 09/09/18 03/03/25 History Escitalopram [Lexapro] 10 mg PO DAILY 09/09/18 03/03/25 History Multivit-Min/Folic/Vit K/Lycop 1 tab PO DAILY 04/14/22 05/11/24 History [Men's Multivitamin Tablet] metFORMIN HCL [Glucophage] 500 mg PO BID-W/MEALS 04/14/22 03/03/25 History Amlodipine Besylate/Celecoxib 5 mg PO DAILY 03/03/25 03/03/25 History [Consensi 5-200 mg Tablet] Allergies Allergy/AdvReac Type Severity Reaction Status Date / Time No Known Allergies Allergy Verified 12/18/24 09:48 Physical Exam Vitals: Vital Signs Temp Pulse Resp BP Pulse Ox 03/03/25 16:42 98 F 76 16 143/91 96 Intake and Output 03/03/25 03/03/25 03/03/25 06:59 14:59 22:59 Other: Weight 144.696 kg Sleep Note - Sleep Data ESS Total: 15 - Sleep Note Sleep Note: Temperature: 98 F Pulse Rate: 76 Respiratory Rate: 16 Blood Pressure: 143/91 SpO2: 96 Height: 5 ft 9 in Weight: 144.696 kg BMI: Neck Circumference: 17
== END ==
LOC: 3 N SLEEP 16:25
PROVIDERS: ATTEND Internal Medicine
DX: G47.33 Obstructive sleep apnea (adult) (pediatric) (principal); E66.9 Obesity, unspecified; I10 Essential (primary) hypertension; E78.5 Hyperlipidemia, unspecified; F41.9 Anxiety disorder, unspecified; R73.03 Prediabetes; Z90.49 Acquired absence of other specified parts of digestive tract; Z98.890 Other specified postprocedural states; Z68.42 Body mass index [BMI] 45.0-49.9, adult
CPT/HCPCS: 99211